=== PATIENT | female | born 1935 | race Caucasian/White ===

== ENCOUNTER 2019-07-20 01:41 | Emergency (ER) | payer MEDICARE, BC, SELFPAY ==
[2019-07-20 01:47] VITALS: BP 188/76; PULSE 85; RESP 18; TEMP 36.8; O2SAT 100
[2019-07-20 02:22] LABS: Add Urine Microscopic? YES; Appearance Urine Clear (Clear); Bilirubin Urine Negative (Negative); Blood Urine 1+ (Negative); Color Urine Yellow (Yellow); Glucose Urine UA Negative (Negative); Ketones Urine Negative (Negative); Leukocyte Esterase Ur 2+ LEU/UL (Negative); Nitrate Urine Negative (Negative); Protein Urine Negative (Negative); Specific Grav Ur <= 1.005 (1.010-1.020); Urobilinogen Urine 0.2 mg/dL (0.2-1.0); pH Urine 5.5 (5.0-8.0)
[2019-07-20 02:31] LABS: Bacteria Urine Trace /hpf; Squamous Epithelial Cell Urine None seen /hpf (Few); WBC Urine 21-30 /hpf (0-3)
[2019-07-20 02:36] VITALS: BP 170/76; PULSE 60; RESP 16; O2SAT 100
--- NOTE | 2019-07-20 02:39 | ED.FEMALEGU ---
HPI - Female Genitourinary General Chief complaint: Urogenital-Female Stated complaint: Possible dehydration Time Seen by Provider: 07/20/19 02:40 Source: patient and RN notes reviewed Mode of arrival: ambulatory Limitations: no limitations History of Present Illness MD elicited complaint: UTI Onset (ago): day(s) (1) Severity: moderate Female Urogenital Radiation: Non-Radiating Consistency: intermittent Urinary symptoms: Urgency and Frequency Exacerbating factors: urination Relieving factors: none Associated symptoms: denies other symptoms Treatment prior to arrival: none Sexual activity: No Related Data Home Medications Medication Instructions Recorded Confirmed pravastatin 40 mg PO DAILY 07/20/19 07/20/19 Allergies Allergy/AdvReac Type Severity Reaction Status Date / Time atropine Allergy Unknown EYE Verified 10/01/16 09:37 REDNESS, IRRITATION Review of Systems Review of Systems: All systems reviewed & are unremarkable except as noted in HPI and below Constitutional: Constitutional: Denies chills Cardiovascular: Cardiovascular: Reports no additional cardiovascular complaints Respiratory: Respiratory: Reports no additional respiratory complaints Gastrointestinal: Gastrointestinal: Reports no additional gastrointestinal complaints, Denies diarrhea, Denies nausea and Denies vomiting Genitourinary: Genitourinary: Reports no additional female genitourinary complaints, Denies hematuria and Denies dysuria Musculoskeletal: Musculoskeletal: Reports no additional musculoskeletal complaints Integumentary/Breasts: Skin/Breast: Reports system reviewed and no additional complaints, except as docu Neurologic: Reports system reviewed and no additional complaints, except as documented Psychiatric: Psychiatric: Reports no additional psychiatric complaints Endocrine: Endocrine: Reports no additional endocrine complaints [facility] Past Medical History Medical History (Updated 07/20/19 @ 02:59 by Eagle Vargas MD) Hyperlipidemia Ovary cancer Surgical History Surgical History (Updated 07/20/19 @ 02:59 by Eagle Vargas MD) History of hip surgery History of hysterectomy Social History Social History Smoking status: Never smoker Alcohol intake: current Exam Const: General: healthy appearing and no acute distress Nutritional Appearance: well nourished Orientation/consciousness: patient oriented x3 HENMT: Head: normal to inspection Ears: external ears normal General nose exam: Normal external nose present Face and sinus: normal facial exam Mouth: Yes lip normal Eyes: Conjunctivae: conjunctivae normal Pupils: Equal, round and reactive pupils present EOM: EOMs intact bilaterally Neck: Neck: normal visual inspection Resp: Effort & Inspection: normal respiratory effort Auscultation: clear to auscultation bilaterally Cardio: Rate: regular rate Rhythm: regular rhythm GI: GI Palp: Yes Soft to palpation and No Tenderness to palpation present (GI) Auscultation: normal bowel sounds : General: Yes no CVA tenderness Back/Spine/Pelvis: Cervical Spine: cervical ROM normal Thoracic/Lumbar Spine: thoraco-lumbar ROM normal Skin: General skin exam: normal color Rashes: no rashes Neuro: General: patient oriented x3, moves all extremities and no focal motor deficits Speech: normal speech Gait exam (Neuro): Normal gait present Extrem: General: normal to inspection and no pedal edema Psych: Appearance: well kempt Mental Status: mental status grossly normal Affect: normal affect Attitude: cooperative Thought content: Yes Normal thought content present Judgement: Good judgement present (Psych) Course Vital Signs Vital signs: Vital Signs Temperature 36.8 C 07/20/19 01:47 Pulse Rate 85 07/20/19 01:47 Respiratory Rate 18 07/20/19 01:47 Blood Pressure 188/76 H 07/20/19 01:47 Pulse Oximetry 100 07/20/19 01:47
[2019-07-20] MEDS: NITROFURANTOIN MONOHYD MACROCR 100 MG CAP PO (02:59)
[2019-07-20 03:07] VITALS: BP 172/80; PULSE 70; RESP 16; O2SAT 100
== END 2019-07-20 03:00 | disposition home or self-care (01) ==
PROVIDERS: Emergency Provider Emergency Medicine; PCP Internal Medicine
DX: N30.00 Acute cystitis without hematuria (principal); E78.5 Hyperlipidemia, unspecified
CPT/HCPCS: 81001; 87077; 87086; 87088; 87186; 99283; A9270

== ENCOUNTER 2019-07-29 08:21 | Outpatient (CLI) | payer MEDICARE, SELFPAY ==
[2019-07-29 08:51] LABS: Add Urine Microscopic? YES; Appearance Urine Clear (Clear); Bilirubin Urine Negative (Negative); Blood Urine Negative (Negative); Color Urine Yellow (Yellow); Glucose Urine UA Negative (Negative); Ketones Urine Negative (Negative); Leukocyte Esterase Ur 1+ (Negative); Nitrate Urine Negative (Negative); Protein Urine Negative (Negative); Specific Grav Ur 1.025 (1.010-1.020); Urobilinogen Urine 0.2 mg/dL (0.2-1.0); pH Urine 5.5 (5.0-8.0)
[2019-07-29 08:58] LABS: Bacteria Urine 3+ /hpf; Mucus Urine Moderate /lpf; RBC Urine 0-2 /hpf (0-2); Squamous Epithelial Cell Urine Few /hpf (Few); WBC Urine 16-20 /hpf (0-3)
[2019-07-29 09:06] LABS: Hemoglobin A1C 5.7 % (<5.7)
[2019-07-29 09:21] LABS: Alanine Aminotransferase 24 U/L (14-59); Albumin Level 4.3 g/dL (3.4-5.0); Alkaline Phosphatase 54 U/L (46-116); Anion Gap 12.1 mmol/L (7-16); Aspartate Amino Transferase 30 U/L (15-37); Bilirubin,Total 0.6 mg/dL (0.00-1.00); Blood Urea Nitrogen 25 mg/dL (7-18); Calcium 10.3 mg/dL (8.5-10.1); Carbon Dioxide 30 mmol/L (21-32); Chloride 102 mmol/L (98-108); Cholesterol 197 mg/dL (0-200); Creatine Kinase 60 U/L (26-192); Estimated Glomerular Filt Rate 48; Glucose 91 mg/dL (70-99); HDL Direct 78 mg/dL (40-60); LDL Cholesterol Calculated 104 mg/dL (<130); Osmolality Calculated 294 mOsm/kg (285-295); Potassium 4.1 mmol/L (3.5-5.1); Sodium 140 mmol/L (136-145); Triglycerides 76 mg/dL (0-150); Uric Acid 6.8 mg/dL (2.6-6.0)
[2019-08-02 19:08] LABS: Vitamin D 25 Hydroxy 35 ng/mL (30-100)
== END 2019-07-29 08:22 | disposition home or self-care (01) ==
PROVIDERS: PCP Internal Medicine; Visit Provider Internal Medicine
DX: E79.0 Hyperuricemia without signs of inflammatory arthritis and tophaceous disease (principal); I10 Essential (primary) hypertension; E78.2 Mixed hyperlipidemia; R73.01 Impaired fasting glucose; M81.0 Age-related osteoporosis without current pathological fracture; N39.0 Urinary tract infection, site not specified
CPT/HCPCS: 36415; 80053; 80061; 81001; 82306; 82550; 83036; 84550; 87086

== ENCOUNTER 2019-08-09 13:41 | Outpatient (CLI) | payer MEDICARE, BC, SELFPAY ==
--- NOTE | ~2019-08-09 | MM_ITS ---
EXAMINATION: MM screening diya BI w phoe[facility] HISTORY: Screening mammogram TECHNIQUE: Craniocaudal and mediolateral oblique 3-D tomosynthesis images were obtained and synthetic 2-D images were generated. CAD analysis was submitted and interpreted. COMPARISON: 06/02/2018, 05/21/2017, 10/12/2015 bilateral digital screening mammogram examinations BREAST PARENCHYMAL COMPOSITION: There are scattered areas of fibroglandular density. FINDINGS: Multiple bilateral benign calcifications. There is suggestion of a several millimeter mass in the mid outer left breast anteriorly (craniocauda l Tomosynthesis image 22/49). Diagnostic left mammogram and left breast ultrasound examination are re commended. Otherwise there is no evidence of suspicious mass, calcification, or architectural distortion to sugg est malignancy in either breast. There has been no other suspicious interval change. IMPRESSION: 1. Possible 7 mm mass of mid outer left breast 2. Diagnostic left mammogram and left breast ultrasound examination are recommended. BI-RADS Category 0: Incomplete: Needs additional imaging evaluation. Reviewed, dictated and finalized at location A. IMPRESSION: 1. Possible 7 mm mass of mid outer left breast 2. Diagnostic left mammogram and left breast ultrasound examination are recomme nded. BI-RADS Category 0: Incomplete: Needs additional imaging evaluation.
== END 2019-08-09 13:42 | disposition home or self-care (01) ==
PROVIDERS: PCP Internal Medicine; Visit Provider Internal Medicine
DX: Z12.31 Encounter for screening mammogram for malignant neoplasm of breast (principal)
CPT/HCPCS: 77063; 77067

== ENCOUNTER 2019-08-12 10:15 | Outpatient (CLI) | payer MEDICARE, BC, SELFPAY ==
--- NOTE | ~2019-08-12 | MMUS_ITS ---
EXAMINATION: MM diagnostic diya LT w phoebe, US breast LT limited HISTORY: Possible 7 mm mass with mid outer left breast on 08/09/2019 screening mammogram TECHNIQUE: Additional 3-D tomosynthesis images of were performed and synthetic 2-D images were genera elisabeth. CAD analysis was submitted and interpreted. High resolution breast ultrasound was performed. COMPARISON: 08/09/2019 bilateral digital screening mammogram FINDINGS: MAMMOGRAPHIC FINDINGS: Possible 5.5 mm mass is suggested in the outer left breast on craniocaudal projections. This is likel y in the upper outer quadrant. Additional smaller upper outer quadrant masses are not excluded. Ultra sound of the upper outer and lower-outer quadrants of the left breast is recommended. ULTRASOUND: At 2:00 3 cm from the nipple there is a parallel hypoechoic 1.4 x 2.7 mm x 3.6 mm lesion with posteri or shadowing. Ultrasound-guided biopsy should be considered. 3:00 3 cm from nipple: 2.4 mm cyst 3:00 5 cm from nipple: Septated up to 5.6 mm cyst 3:00 1 cm from nipple: Parallel circumscribed hypoechoic solid lesion measuring 3.9 x 5.9 x 7.2 mm ma ss without internal vascularity or posterior shadowing; this may be a papilloma or other solid mass. Consider ultrasound-guided biopsy. 4:00 1 cm from nipple: Multi septated 3.0 x 4.5 mm cyst 4:00 1 cm from nipple: 1.6 x 2.5 mm cyst IMPRESSION: 1. 1.4 x 2.7 x 3.6 mm mass with posterior shadowing at 2:00 3 cm from nipple; consider ultrasound-dayday ded biopsy 2. 3.9 x 5.9 x 7.2 mm mass at 3:00 1 cm from nipple; consider ultrasound-guided biopsy BI-RADS category 4, suspicious findings. Dr. Osman telephoned the reports and ultrasound biopsy recommendations to Dr. Perez's nurse Viki on 1145 hours Reviewed, dictated and finalized at location A. IMPRESSION: 1. 1.4 x 2.7 x 3.6 mm mass with posterior shadowing at 2:00 3 cm from nipple; c onsider ultrasound-guided biopsy 2. 3.9 x 5.9 x 7.2 mm mass at 3:00 1 cm from nipple; consider ultrasound-guided biopsy BI-RADS category 4, suspicious findings. Dr. Osman telephoned the reports and ultrasound biopsy recommendations to Dr. Tra raman's nurse Viki on 08/12/2019 1145 hours
== END 2019-08-12 10:16 | disposition home or self-care (01) ==
PROVIDERS: PCP Internal Medicine; Visit Provider Internal Medicine
DX: R92.8 Other abnormal and inconclusive findings on diagnostic imaging of breast (principal)
CPT/HCPCS: 76642; 77061; 77065; G0279

== ENCOUNTER 2019-08-24 12:40 | Outpatient (CLI) | payer MEDICARE, BC, SELFPAY ==
--- NOTE | ~2019-08-24 | MMUS_ITS ---
EXAMINATION: US breast biopsy LT w image, MM post biopsy invasive LT DATE: 08/24/2019 14:00 INDICATION: Indeterminate left breast masses on recent diagnostic evaluation Ultrasound-guided core biopsy is requested to evaluate for malignancy. TECHNIQUE AND FINDINGS: Two breast masses were recommended for biopsy on recent diagnostic workup. On real-time scanning, the mass described at the 2:00 location 3 cm from the nipple contains punctate internal calcifications a nd corresponds to a stable calcified fibroadenoma on the mammogram. The risks and potential benefits of the procedure were discussed with the patient including bleeding and infection. A time out was per formed. The skin of the left breast was prepared and draped in usual sterile fashion. 1% lidocaine wa s used for superficial anesthesia. 1% lidocaine with epinephrine was used for deep anesthesia. A vacuum-assisted biopsy gun needle was advanced through to the outer edge of the lesion at the 3:00 location 1 cm from the nipple from an inferolateral approach utilizing sonographic guidance. A total of two tissue core samples were obtained through the lesion. The lesion was not well demonstrated aft er the third sampling. A tissue marker clip was then placed at the biopsy site. Hemostasis was achiev ed. A sterile bandage was applied. The patient tolerated procedure well and there was no evidence of immediate complication. The patient was given verbal instructions to return to the Emergency Department in the event of severe breast pa in or rapid breast enlargement. A two view left breast mammogram was obtained to document tissue janna er clip placement. IMPRESSION: 1. Successful ultrasound-guided vacuum-assisted biopsy of left breast mass with tissue marker placeme nt. Reviewed, dictated and finalized at location A. IMPRESSION: 1. Successful ultrasound-guided vacuum-assisted biopsy of left breast mass with tissue marker placement.
== END 2019-08-24 12:41 | disposition home or self-care (01) ==
LOC: CHSIMG 12:43
PROVIDERS: PCP Internal Medicine; Visit Provider Internal Medicine
DX: D24.2 Benign neoplasm of left breast (principal)
CPT/HCPCS: 19083; 88305; A4648

== ENCOUNTER 2020-01-23 08:22 | Outpatient (CLI) | payer MEDICARE, SELFPAY ==
[2020-01-23 08:35] LABS: Basophils Absolute Auto 0.04 K/mm3 (0.00-0.10); Basophils Percent Auto 0.9 % (0.0-1.0); Eosinophils Absolute Auto 0.03 K/mm3 (0.02-0.50); Eosinophils Percent Auto 0.6 % (1.0-6.0); Hematocrit 39.8 % (35.0-42.0); Hemoglobin 13.2 g/dL (11.7-13.8); Immature Granulocyte Absolute 0.01 K/mm3 (0.00-0.00); Immature Granulocyte Percent A 0.2 % (0.0-0.0); Lymphocytes Absolute Auto 1.83 K/mm3 (1.10-4.50); Lymphocytes Percent Auto 39.4 % (18.0-42.0); Mean Corpuscular HGB Conc 33.2 g/dL (32.0-36.0); Mean Corpuscular Hemoglobin 31.2 pg (27.0-31.0); Mean Corpuscular Volume 94.1 fL (78.0-102.0); Mean Platelet Volume 10.5 fl (9.2-11.8); Monocytes Absolute Auto 0.24 K/mm3 (0.10-0.90); Monocytes Percent Auto 5.2 % (2.0-11.0); Neutrophils Absolute Auto 2.5 K/mm3 (1.7-7.2); Neutrophils Percent Auto 53.7 % (50.0-70.0); Platelet Count Result 229 K/mm3 (150-420); Red Blood Count 4.23 M/mm3 (4.20-5.40); Red Cell Distribution Width 13.1 % (11.6-14.4); White Blood Count 4.6 K/mm3 (4.8-10.8)
[2020-01-23 08:45] LABS: Hemoglobin A1C 5.2 % (<5.7)
[2020-01-23 08:48] LABS: Add Urine Microscopic? YES; Appearance Urine Clear (Clear); Bilirubin Urine Negative (Negative); Blood Urine Negative (Negative); Color Urine Yellow (Yellow); Glucose Urine UA Negative (Negative); Ketones Urine Negative (Negative); Leukocyte Esterase Ur 2+ LEU/UL (Negative); Nitrate Urine Negative (Negative); Protein Urine Negative (Negative); Specific Grav Ur 1.025 (1.010-1.020); Urobilinogen Urine 0.2 mg/dL (0.2-1.0); pH Urine 5.5 (5.0-8.0)
[2020-01-23 08:54] LABS: RBC Urine None seen /hpf (0-2)
[2020-01-23 08:55] LABS: Bacteria Urine 1+ /hpf; Squamous Epithelial Cell Urine Few /hpf (Few)
[2020-01-23 09:09] LABS: Alanine Aminotransferase 24 U/L (14-59); Albumin Level 4.2 g/dL (3.4-5.0); Alkaline Phosphatase 55 U/L (46-116); Anion Gap 9 mmol/L (8-16); Aspartate Amino Transferase 23 U/L (15-37); Bilirubin,Total 0.5 mg/dL (0.00-1.00); Blood Urea Nitrogen 21 mg/dL (7-18); Calcium 10.2 mg/dL (8.5-10.1); Carbon Dioxide 28 mmol/L (21-32); Chloride 107 mmol/L (98-108); Cholesterol 233 mg/dL (0-200); Estimated Glomerular Filt Rate 54; Glucose 97 mg/dL (70-99); HDL Direct 74 mg/dL (40-60); LDL Cholesterol Calculated 133 mg/dL (<130); Osmolality Calculated 301 mOsm/kg (285-295); Potassium 4.1 mmol/L (3.5-5.1); Sodium 144 mmol/L (136-145); Triglycerides 131 mg/dL (0-150); Uric Acid 6.2 mg/dL (2.6-6.0)
[2020-01-25 11:17] LABS: Vitamin D 25 Hydroxy 19 ng/mL (30-100)
== END 2020-01-23 08:23 | disposition home or self-care (01) ==
LOC: CHSLAB 08:24
PROVIDERS: PCP Internal Medicine; Visit Provider Internal Medicine
DX: E79.0 Hyperuricemia without signs of inflammatory arthritis and tophaceous disease (principal); I10 Essential (primary) hypertension; E78.2 Mixed hyperlipidemia; M81.0 Age-related osteoporosis without current pathological fracture; R73.01 Impaired fasting glucose; R82.90 Unspecified abnormal findings in urine
CPT/HCPCS: 36415; 80053; 80061; 81001; 82306; 83036; 84550; 85025; 87086

== ENCOUNTER 2020-02-01 10:26 | Outpatient (CLI) | payer MEDICARE, BC, SELFPAY ==
--- NOTE | 2020-02-01 10:45 | ECG_ITS ---
Measurements Intervals [place] Rate: 65 P: 81 NH: 162 QRS: 60 QRSD: 79 T: 74 QT: 378 QTc: 393 Interpretive Statements SINUS RHYTHM RSR' IN V1 OR V2, CONSIDER RIGHT VENTRICULAR HYPERTROPHY OR RIGHT VCD BORDERLINE T WAVE ABNORMALITY- ANTERIOR LEADS BASELINE WANDER- I, II, V1-V2 BORDERLINE ECG Electronically Signed On 02-01-2020 11:48:49 CENTRAL OFFICE REPAIRER by Sonido Jimenez D.O.
== END 2020-02-01 10:27 | disposition home or self-care (01) ==
LOC: CHSCARD 10:36
PROVIDERS: PCP Internal Medicine; Visit Provider Anesthesiology
DX: E78.00 Pure hypercholesterolemia, unspecified (principal); I10 Essential (primary) hypertension
CPT/HCPCS: 93005

== ENCOUNTER 2020-02-04 08:30 | Outpatient (CLI) | payer MEDICARE, BC, SELFPAY ==
[2020-02-06 16:54] LABS: SARS-CoV-2 RNA PCR Negative
== END 2020-02-04 08:31 | disposition home or self-care (01) ==
LOC: ANHCOVIDDT 08:31
PROVIDERS: PCP Internal Medicine; Visit Provider Plastic Surgery
DX: Z01.812 Encounter for preprocedural laboratory examination (principal); Z20.828 Contact with and (suspected) exposure to other viral communicable diseases
CPT/HCPCS: 87635; C9803; U0003

== ENCOUNTER 2020-02-08 00:52 | Day surgery (SDC) | payer MEDICARE, BC, SELFPAY ==
[2020-01-31 13:13] VITALS: BMI 22.0
--- NOTE | 2020-02-07 14:51 | P.PNAN_ITS ---
Anes - Initial Pre Proc Eval Procedure: Operation Date: 02/08/20 09:30 Proposed Procedures p Excision Of Basal Cell Carcinoma,Left [place], With Frozen Section And Possible Full Thickness Skin Graft - Moiz Ny MD Date/Time: 02/07/20 14:51 Surgeon: Moiz Ny MD Pre Op Diagnosis: Basal Cell Carcinoma Left Hindu Patient Data Age: 84 Gender: F Height: 1.54 m Weight: 52 kg Allergies Allergy/AdvReac Type Severity Reaction Status Date / Time atropine AdvReac Mild EYE Verified 02/08/20 07:27 REDNESS, IRRITATION Home Medications Medication Instructions Recorded Confirmed Type pravastatin 40 mg PO HS 07/20/19 02/08/20 History naproxen sodium [Aleve] 440 mg PO QAM PRN 01/31/20 02/08/20 History triamterene-hydrochlorothiazid 1 tablet PO QAM 01/31/20 02/08/20 History Patient hx anesthesia problems: none Family hx anesthesia problems: none [facility] Past Medical History Medical History (Updated 02/07/20 @ 14:51 by Reji Choudhury DO) GERD (gastroesophageal reflux disease) History of heart attack stress [place] - no treatment Hyperlipidemia Hypertension Ovary cancer Surgical History Surgical History (Updated 07/20/19 @ 02:59 by Eagle Vargas MD) History of hip surgery History of hysterectomy Social History Social History Smoking status: Former smoker Alcohol intake: current Drinks per week: 6 Substance use: never Living arrangements: with family Additional living arrangements comments: DAUGHTER AND HER HUSB Spiritual care concerns: No Anes - Eval Final PreProcedure Day of Procedure 02/07/20 14:51 Patient weight: normal Heart: regular rate and rhythm Lungs: clear to auscultation and normal air movement Airway: Mallampati scale class II Neurological: alert and oriented Last oral intake: >/= 8 hours ASA classification: III Emergent: no Anesthetic plan: proceed Anesthesia type and monitoring: general GIVS and standard monitoring Informed Consent: The patient's anesthetic plan and its attendant risks and benefits were discussed with the patient/family/POA. Questions were solicited and answers provided to the satisfaction of the patient/family/POA.
--- NOTE | 2020-02-08 07:10 | WPDHPUPDATE1 ---
History and Physical Update Update Date/Time: 02/08/20 07:10 History and Physical has been reviewed, including an updated exam of the patient. There are NO changes in the patient's condition. Risks, benefits, and alternatives have been discussed and questions answered. Patient agrees to proceed with procedure.
[2020-02-08 07:41] VITALS: BP 148/47; PULSE 65; RESP 20; TEMP 36.9; O2SAT 100
[2020-02-08] MEDS: LACTATED RINGERS 1,000 ML 30 ML IV CONT (07:56)
[2020-02-08] MEDS: LIDO 1%/EPINEPHRINE 1:100,000 20 ML VIAL 3 ML INFILTRATE (11:03)
[2020-02-08] MEDS: BACITRACIN OINTMENT 15 GM TUBE 1 APPLIC TOPICAL (11:04)
[2020-02-08 11:14] VITALS: BP 143/69; PULSE 92; RESP 16; TEMP 36.3; O2SAT 92
--- NOTE | 2020-02-08 11:25 | P.OPB_ITS ---
Procedure Note - Brief Procedure Note - Brief Date of procedure: 02/08/20 Pre-op diagnosis: Basal Cell Carcinoma Left [place] Post-op diagnosis: same Procedure performed: 3 cm excision of BCC or left latter day with FS and intermediate repair 5 cm. Anesthesia: MAC Surgeon: Moiz Ny MD Estimated blood loss (mL): 2 Drains: No Packing: No Pathology: yes Complications: No immediate complications Condition: stable Disposition: same day
--- NOTE | 2020-02-08 11:30 | P.OP_ITS ---
Procedure Note - Detailed Date of procedure: 02/08/20 Pre-op diagnosis: Basal Cell Carcinoma Left Rastaf[place] Post-op diagnosis: same Procedure performed: 4 cm excision of basal cell carcinoma left congregational with frozen section and intermediate repair 5 cm Description of procedure: Site on the forehead was marked while the patient was in the holding area. She was taken to the operating room where she was placed supine on the operating table. A time-out was held and confirmed. She was given IV sedation and her face was prepped and draped in usual fashion. The site was carefully examined for her forehead and a nickel sized silvery scar like structure was noted elevated about 0.5 mm. The site was widely circumscribed with pen marking and infiltrated with 1% lidocaine with epinephrine. The ellipse including subcutaneous tissue was excised the site most near the orbit was marked as 12:00 o'clock and the tissue was sent for frozen section. The pathologist reported that the 12-1 o'clock margin was positive. A 2nd specimen was sent from the 11-2 aspect. The pathologist reported this also had a positive margin in the 12-1 region. He suggested permanent sections to follow. The additional tissue was taken off again from the 11 to to margin it was marked at its new 12:00 p.m. point and sent for permanent. The wound was easily closed on this elderly patient with intradermal 4-0 Vicryl and a running 5 0 nylon. We closed the skin over the eyelid with 5 0 chromic. She tolerated this procedure well. She prefers Aleve for pain medicine. She is being discharged with instructions in wound care and follow- up. Surgeon: Moiz Ny MD
[2020-02-08 11:45] VITALS: BP 138/54; PULSE 52; RESP 14
[2020-02-08 12:00] VITALS: BP 138/54; PULSE 52; RESP 16
== END 2020-02-08 12:10 | disposition home or self-care (01) ==
PROVIDERS: PCP Internal Medicine; Visit Provider Plastic Surgery
PROC: (CPT 11644; principal; 2020-02-08 09:30)
DX: C44.319 Basal cell carcinoma of skin of other parts of face (principal); K21.9 Gastro-esophageal reflux disease without esophagitis; I25.2 Old myocardial infarction; E78.5 Hyperlipidemia, unspecified; I10 Essential (primary) hypertension; Z85.43 Personal history of malignant neoplasm of ovary; Z87.891 Personal history of nicotine dependence
CPT/HCPCS: 11644; 12052; 88305; 88331; A9270; J2704; J7120

== ENCOUNTER 2020-07-20 07:47 | Outpatient (CLI) | payer MEDICARE, SELFPAY ==
[2020-07-20 08:09] LABS: Basophils Absolute Auto 0.03 K/mm3 (0.00-0.10); Basophils Percent Auto 0.6 % (0.0-1.0); Eosinophils Absolute Auto 0.02 K/mm3 (0.02-0.50); Eosinophils Percent Auto 0.4 % (1.0-6.0); Hemoglobin 13.3 g/dL (11.7-13.8); Immature Granulocyte Absolute 0.01 K/mm3 (0.00-0.00); Immature Granulocyte Percent A 0.2 % (0.0-0.0); Lymphocytes Absolute Auto 2.01 K/mm3 (1.10-4.50); Lymphocytes Percent Auto 39.3 % (18.0-42.0); Mean Corpuscular HGB Conc 33.3 g/dL (32.0-36.0); Mean Corpuscular Hemoglobin 31.4 pg (27.0-31.0); Mean Corpuscular Volume 94.3 fL (78.0-102.0); Mean Platelet Volume 10.6 fl (9.2-11.8); Monocytes Absolute Auto 0.34 K/mm3 (0.10-0.90); Monocytes Percent Auto 6.7 % (2.0-11.0); Neutrophils Absolute Auto 2.7 K/mm3 (1.7-7.2); Neutrophils Percent Auto 52.8 % (50.0-70.0); Platelet Count Result 240 K/mm3 (150-420); Red Blood Count 4.24 M/mm3 (4.20-5.40); Red Cell Distribution Width 13.9 % (11.6-14.4); White Blood Count 5.1 K/mm3 (4.8-10.8)
[2020-07-20 08:10] LABS: Add Urine Microscopic? YES; Appearance Urine Clear (Clear); Bilirubin Urine Negative (Negative); Blood Urine Negative (Negative); Color Urine Yellow (Yellow); Glucose Urine UA Negative (Negative); Ketones Urine Negative (Negative); Leukocyte Esterase Ur 2+ (Negative); Nitrate Urine Negative (Negative); Protein Urine Negative (Negative); Urobilinogen Urine 0.2 mg/dL (0.2-1.0)
[2020-07-20 08:14] LABS: RBC Urine None seen /hpf (0-2)
[2020-07-20 08:15] LABS: Bacteria Urine Trace /hpf; Squamous Epithelial Cell Urine Rare /hpf (Few)
[2020-07-20 08:25] LABS: Hemoglobin A1C 5.4 % (<5.7)
[2020-07-20 08:56] LABS: Alanine Aminotransferase 31 U/L (14-59); Albumin Level 4.2 g/dL (3.4-5.0); Alkaline Phosphatase 58 U/L (46-116); Anion Gap 11 mmol/L (8-16); Aspartate Amino Transferase 24 U/L (15-37); Bilirubin,Total 0.5 mg/dL (0.00-1.00); Blood Urea Nitrogen 25 mg/dL (7-18); Calcium 10.3 mg/dL (8.5-10.1); Carbon Dioxide 29 mmol/L (21-32); Chloride 104 mmol/L (98-108); Cholesterol 216 mg/dL (0-200); Creatine Kinase 83 U/L (26-192); Estimated Glomerular Filt Rate 53; Glucose 102 mg/dL (70-99); HDL Direct 85 mg/dL (40-60); LDL Cholesterol Calculated 113 mg/dL (<130); Osmolality Calculated 302 mOsm/kg (285-295); Potassium 4.1 mmol/L (3.5-5.1); Sodium 144 mmol/L (136-145); Total Protein 7.1 g/dL (6.4-8.2); Triglycerides 88 mg/dL (0-150); Uric Acid 6.2 mg/dL (2.6-6.0)
[2020-07-22 22:04] LABS: Vitamin D 25 Hydroxy 38 ng/mL (30-100)
== END 2020-07-20 07:48 | disposition home or self-care (01) ==
LOC: CHSLAB 07:49
PROVIDERS: PCP Internal Medicine; Visit Provider Internal Medicine
DX: E79.0 Hyperuricemia without signs of inflammatory arthritis and tophaceous disease (principal); I10 Essential (primary) hypertension; R73.01 Impaired fasting glucose; E78.2 Mixed hyperlipidemia; M81.0 Age-related osteoporosis without current pathological fracture; N30.00 Acute cystitis without hematuria
CPT/HCPCS: 36415; 80053; 80061; 81001; 82306; 82550; 83036; 84550; 85025; 87086

== ENCOUNTER 2020-08-14 10:46 | Outpatient (CLI) | payer MEDICARE, BC, SELFPAY | END 2020-08-14 10:47 | disposition home or self-care (01) | LOC: CHSIMG 10:49 | PROVIDERS: PCP Internal Medicine; Visit Provider Internal Medicine | DX: Z00.00 Encounter for general adult medical examination without abnormal findings (principal) | CPT/HCPCS: 99199 ==

== ENCOUNTER 2020-10-23 08:16 | Outpatient (CLI) | payer MEDICARE, BC, SELFPAY ==
--- NOTE | ~2020-10-23 | MM_ITS ---
EXAMINATION: MM screening diya BI w phoebe HISTORY: Screening mammogram TECHNIQUE: Craniocaudal and mediolateral oblique 3-D tomosynthesis images were obtained and synthetic 2-D images were generated. CAD analysis was submitted and interpreted. COMPARISON: 08/24/2019 left ultrasound guided breast biopsy 08/12/2019 diagnostic left mammogram and limited left breast ultrasound 08/09/2019 06/02/2018 bilateral digital screening mammogram examinations BREAST PARENCHYMAL COMPOSITION: There are scattered areas of fibroglandular density. FINDINGS: History of bilateral prior benign breast biopsies. There is a biopsy marker on the left. Scattered bilateral benign calcifications. There is no evidence of suspicious mass, calcification, or architectural distortion to suggest malignancy in either breast. There has been no suspicious interv al change. IMPRESSION: 1. No mammographic evidence of malignancy. 2. Recommend routine screening mammography in one year. BI-RADS Category 2: Benign finding(s). Reviewed, dictated and finalized at location A.
== END 2020-10-23 08:17 | disposition home or self-care (01) ==
LOC: CHSIMG 08:17
PROVIDERS: PCP Internal Medicine; Visit Provider Internal Medicine
DX: Z12.31 Encounter for screening mammogram for malignant neoplasm of breast (principal)
CPT/HCPCS: 77063; 77067

== ENCOUNTER 2021-01-17 07:41 | Outpatient (CLI) | payer MEDICARE, SELFPAY ==
[2021-01-17 07:57] LABS: Add Urine Microscopic? YES; Appearance Urine Clear (Clear); Bilirubin Urine Negative (Negative); Blood Urine Negative (Negative); Color Urine Light Yellow (Yellow); Glucose Urine UA Negative (Negative); Ketones Urine Negative (Negative); Leukocyte Esterase Ur 1+ (Negative); Nitrate Urine Negative (Negative); Protein Urine Negative (Negative); Urobilinogen Urine 0.2 mg/dL (0.2-1.0); pH Urine 6.5 (5.0-8.0)
[2021-01-17 08:03] LABS: Bacteria Urine Trace /hpf; RBC Urine None seen /hpf (0-2); Squamous Epithelial Cell Urine Rare /hpf (Few); WBC Urine 0-3 /hpf (0-3)
[2021-01-17 08:06] LABS: Hemoglobin A1C 5.3 % (<5.7)
[2021-01-17 08:46] LABS: Alanine Aminotransferase 35 U/L (14-59); Albumin Level 4.3 g/dL (3.4-5.0); Alkaline Phosphatase 58 U/L (46-116); Anion Gap 9 mmol/L (8-16); Aspartate Amino Transferase 30 U/L (15-37); Bilirubin,Total 0.5 mg/dL (0.00-1.00); Blood Urea Nitrogen 22 mg/dL (7-18); Calcium 10.3 mg/dL (8.5-10.1); Carbon Dioxide 30 mmol/L (21-32); Chloride 105 mmol/L (98-108); Cholesterol 230 mg/dL (0-200); Estimated Glomerular Filt Rate 53; Glucose 100 mg/dL (70-99); HDL Direct 85 mg/dL (40-60); LDL Cholesterol Calculated 123 mg/dL (<130); Osmolality Calculated 301 mOsm/kg (285-295); Potassium 4.2 mmol/L (3.5-5.1); Sodium 144 mmol/L (136-145); Total Protein 7.4 g/dL (6.4-8.2); Triglycerides 111 mg/dL (0-150)
== END 2021-01-17 07:42 | disposition home or self-care (01) ==
LOC: CHSLAB 07:43
PROVIDERS: PCP Internal Medicine; Visit Provider Internal Medicine
DX: R73.01 Impaired fasting glucose (principal); E78.2 Mixed hyperlipidemia; I10 Essential (primary) hypertension
CPT/HCPCS: 36415; 80053; 80061; 81001; 83036

== ENCOUNTER 2021-07-15 12:50 | Emergency (ER) | payer MEDICARE, BC, SELFPAY ==
--- NOTE | ~2021-07-15 | CT_ITS ---
EXAMINATION: CT abdomen pelvis wo con DATE: 07/15/2021 13:40 INDICATION: Right upper quadrant abdominal pain that started in the epigastric area at 2:00 AM this m orning TECHNIQUE: Computed tomography (CT) of the abdomen and pelvis was performed without intravenous contr ast. Automated exposure control and iterative reconstruction technique were employed. Exam dose: 221 .15 mGy-cm total exam DLP. COMPARISON: 08/26/2018 CT abdomen pelvis FINDINGS: Borderline heart size. No pericardial or pleural effusion. No consolidation at the lung bas es. There is minimal infiltrate, atelectasis or fibrotic change at the lung bases. There are small dependent gallstones in the body of the gallbladder and a large gallbladder fundic co ncentrically calcified up to 2.7 cm stone, possibly within a phrygian cap. No pericholecystic fluid o r fat stranding is evident. Consider gallbladder ultrasound and/or radionuclide hepatobiliary scan if there is concern for acute cholecystitis. No bile duct or pancreatic duct dilatation. No hepatic, splenic, pancreatic, and adrenal or renal space-occupying mass lesion is evident. No urin meredith tract calculus or hydroureteronephrosis. The urinary bladder is relatively evacuated. The bladder and pelvic structures are not optimally evaluated due to extensive streak artifact from left hip pro sthesis. Small sliding hiatal hernia. No bowel obstruction is evident. No intraperitoneal free air. Status post hysterectomy. There is extensive abdominal aortic calcification, prominent calcification at the origins of the kishore l arteries and bilateral iliac and femoral artery calcifications. No abdominal aortic aneurysm. No in traperitoneal or retroperitoneal or pelvic mass lesion or adenopathy or ascites is evident. There is levoscoliosis and multilevel degenerative disc disease of the lumbar and lumbosacral spine Left total hip replacement Osteoarthritis of right hip IMPRESSION: Cholelithiasis, with multiple small dependent stones in the body of the gallbladder and up to 2.7 cm concentric calcified calculus at the fundus, possibly within phrygian cap Small sliding hiatal hernia Status post hysterectomy Left total hip arthroplasty Right hip osteoarthritis Reviewed, dictated and finalized at Location A. Reviewed, dictated and finalized at location A. IMPRESSION: Cholelithiasis, with multiple small dependent stones in the body o f the gallbladder and up to 2.7 cm concentric calcified calculus at the fundus, possibly within phrygian cap Small sliding hiatal hernia Status post hysterectomy Left total hip arthroplasty Right hip osteoarthritis
[2021-07-15 13:03] VITALS: BP 203/66; PULSE 73; RESP 20; TEMP 36.5; O2SAT 100
--- NOTE | 2021-07-15 13:06 | ECG_ITS ---
Measurements Intervals [place] Rate: 60 P: 152 MN: 159 QRS: -26 QRSD: 80 T: 141 QT: 413 QTc: 414 Interpretive Statements SINUS RHYTHM WITH SINUS ARRHYTHMIA INCOMPLETE RIGHT BUNDLE BRANCH BLOCK LOW QRS VOLTAGE IN LIMB LEADS ST-T WAVE ABNORMALITY IN HIGH LATERAL LEADS- CONSIDER ISCHEMIA BASELINE ARTIFACT- I, II, III, AVR, AVL, AVF, V1-V2 ABNORMAL ECG Electronically Signed On 07-15-2021 14:14:33 CDT by Sonido Jimenez D.O.
--- NOTE | 2021-07-15 13:07 | ED.GENADULT ---
HPI - General Adult General Chief complaint: Abdominal Pain Stated complaint: R side abd pain History of Present Illness HPI narrative: Toya is an 86F with a PMH of GERD, CAD, HTN, HLD and ovarian cancer that presented to the ED with pain in her RUQ. She ate a taco salad last night and went to bed. However, when she woke up this morning she had some epigastric pain that quickly migrated to her RUQ. There was no reported heartburn, N/V, diarrhea or constipation. No dysuria, fevers, or chills. She had a previous [place] that presented with abdominal pain. Related Data Home Medications Medication Instructions Recorded Confirmed pravastatin 40 mg tablet 40 mg PO HS 07/20/19 07/15/21 triamterene 37.5 1 tablet PO QAM 01/31/20 07/15/21 mg-hydrochlorothiazide 25 mg tablet Allergies Allergy/AdvReac Type Severity Reaction Status Date / Time atropine AdvReac Mild EYE Verified 07/15/21 13:07 REDNESS, IRRITATION Review of Systems Constitutional: Constitutional: Denies chills, Denies fever(s) and Denies weakness Eyes: Eyes: Reports no additional eye complaints ENT: Reports system reviewed and no additional complaints, except as documented Cardiovascular: Cardiovascular: Reports no additional cardiovascular complaints Respiratory: Respiratory: Reports no additional respiratory complaints Gastrointestinal: Gastrointestinal: Reports as per HPI Genitourinary: Genitourinary: Reports no additional female genitourinary complaints Musculoskeletal: Musculoskeletal: Reports no additional musculoskeletal complaints Integumentary/Breasts: Skin/Breast: Reports system reviewed and no additional complaints, except as docu Neurologic: Reports system reviewed and no additional complaints, except as documented Psychiatric: Psychiatric: Reports no additional psychiatric complaints Endocrine: Endocrine: Reports no additional endocrine complaints Hematologic/Lymphatic: Hematologic/Lymphatic: Reports no additional hematologic/lymphatic complaints Allergic/Immunologic: Allergic/Immunologic: Reports no additional allergic/immunologic complaints [facility] Past Medical History Medical History (Updated 07/15/21 @ 14:16 by Jose L Cuellar DO) GERD (gastroesophageal reflux disease) History of heart attack stress [place] - no treatment Hyperlipidemia Hypertension Ovary cancer Surgical History Surgical History (Updated 07/20/19 @ 02:59 by Eagle Vargas MD) History of hip surgery History of hysterectomy Social History Social History Smoking status: Former smoker Alcohol intake: current Drinks per week: 6 Substance use: never Additional living arrangements comments: DAUGHTER AND HER HUSB Spiritual care concerns: No Course Course Emergency Course: Ordered labs and CT wo contrast (No contrast was given d/t contrast shortages) Labs were largely unremarkable. DATE: 07/15/2021 13:40 INDICATION: Right upper quadrant abdominal pain that started in the epigastric area at 2:00 AM this morning TECHNIQUE: Computed tomography (CT) of the abdomen and pelvis was performed without intravenous contrast. Automated exposure control and iterative reconstruction technique were employed. Exam dose:? 221.15 mGy-cm total exam DLP.? COMPARISON: 08/26/2018 CT abdomen pelvis FINDINGS: Borderline heart size. No pericardial or pleural effusion. No consolidation at the lung bases. There is minimal infiltrate, atelectasis or fibrotic change at the lung bases. There are small dependent gallstones in the body of the gallbladder and a large gallbladder fundic concentrically calcified up to 2.7 cm stone, possibly within a phrygian cap. No pericholecystic fluid or fat stranding is evident. Consider gallbladder ultrasound and/or radionuclide hepatobiliary scan if there is concern for acute cholecystitis. No bile duct or pancreatic duct dilatation. No hepatic, splenic, pancreatic, and adrenal or ancelmo
[2021-07-15 13:25] LABS: Add Urine Microscopic? YES; Appearance Urine Clear (Clear); Bilirubin Urine Negative (Negative); Blood Urine Negative (Negative); Color Urine Light Yellow (Yellow); Glucose Urine UA Negative (Negative); Ketones Urine Negative (Negative); Leukocyte Esterase Ur Trace (Negative); Nitrate Urine Negative (Negative); Protein Urine Negative (Negative); Specific Grav Ur <= 1.005 (1.010-1.020); Urobilinogen Urine 0.2 mg/dL (0.2-1.0)
[2021-07-15 13:28] LABS: Basophils Absolute Auto 0.03 K/mm3 (0.00-0.10); Basophils Percent Auto 0.5 % (0.0-1.0); Eosinophils Absolute Auto 0.01 K/mm3 (0.02-0.50); Eosinophils Percent Auto 0.2 % (1.0-6.0); Hematocrit 40.8 % (35.0-42.0); Hemoglobin 13.8 g/dL (11.7-13.8); Immature Granulocyte Absolute 0.02 K/mm3 (0.00-0.00); Immature Granulocyte Percent A 0.3 % (0.0-0.0); Lymphocytes Absolute Auto 1.97 K/mm3 (1.10-4.50); Lymphocytes Percent Auto 31.6 % (18.0-42.0); Mean Corpuscular HGB Conc 33.8 g/dL (32.0-36.0); Mean Corpuscular Hemoglobin 31.9 pg (27.0-31.0); Mean Corpuscular Volume 94.2 fL (78.0-102.0); Monocytes Absolute Auto 0.34 K/mm3 (0.10-0.90); Monocytes Percent Auto 5.4 % (2.0-11.0); Neutrophils Absolute Auto 3.9 K/mm3 (1.7-7.2); Platelet Count Result 228 K/mm3 (150-420); Red Blood Count 4.33 M/mm3 (4.20-5.40); White Blood Count 6.2 K/mm3 (4.8-10.8)
[2021-07-15 13:30] LABS: Bacteria Urine Trace /hpf; RBC Urine None seen /hpf (0-2); Squamous Epithelial Cell Urine Occasional /hpf (Few); WBC Urine 0-3 /hpf (0-3)
[2021-07-15 13:34] LABS: Prothrombin Time 10.2 Seconds (9.50-12.10)
[2021-07-15 13:40] LABS: Alanine Aminotransferase 17 U/L (14-59); Albumin Level 4.4 g/dL (3.4-5.0); Alkaline Phosphatase 64 U/L (46-116); Anion Gap 8 mmol/L (8-16); Aspartate Amino Transferase 28 U/L (15-37); Bilirubin,Total 0.5 mg/dL (0.00-1.00); Blood Urea Nitrogen 22 mg/dL (7-18); Calcium 10.4 mg/dL (8.5-10.1); Carbon Dioxide 29 mmol/L (21-32); Chloride 99 mmol/L (98-108); Estimated CRCL calculation 29 ml/min; Estimated Glomerular Filt Rate 54; Glucose 99 mg/dL (70-99); Lactic Acid Reflex 1.3 mmol/L (0.4-2.0); Lipase 182 U/L (73-393); Osmolality Calculated 285 mOsm/kg (285-295); Potassium 3.2 mmol/L (3.5-5.1); Sodium 136 mmol/L (136-145); Total Protein 7.5 g/dL (6.4-8.2); Troponin I 12.3 ng/L (0.00-60.4)
[2021-07-15 13:41] LABS: CRP < 0.5 mg/dL (0.0-0.9)
[2021-07-15 14:20] VITALS: BP 157/59; PULSE 56; RESP 20; TEMP 36.7; O2SAT 100
== END 2021-07-15 14:23 | disposition home or self-care (01) ==
PROVIDERS: Emergency Provider Family Medicine; PCP Internal Medicine
DX: K80.20 Calculus of gallbladder without cholecystitis without obstruction (principal); K21.9 Gastro-esophageal reflux disease without esophagitis; E78.5 Hyperlipidemia, unspecified; I10 Essential (primary) hypertension; Z87.891 Personal history of nicotine dependence
CPT/HCPCS: 36415; 74176; 80053; 81001; 83605; 83690; 83735; 84484; 85025; 85610; 86140; 93005; 99284

== ENCOUNTER 2021-07-22 07:35 | Outpatient (CLI) | payer MEDICARE, SELFPAY ==
[2021-07-22 07:47] LABS: Basophils Absolute Auto 0.04 K/mm3 (0.00-0.10); Basophils Percent Auto 0.9 % (0.0-1.0); Eosinophils Absolute Auto 0.04 K/mm3 (0.02-0.50); Eosinophils Percent Auto 0.9 % (1.0-6.0); Hemoglobin 14.9 g/dL (11.7-13.8); Immature Granulocyte Absolute 0.01 K/mm3 (0.00-0.00); Immature Granulocyte Percent A 0.2 % (0.0-0.0); Lymphocytes Absolute Auto 1.96 K/mm3 (1.10-4.50); Lymphocytes Percent Auto 42.2 % (18.0-42.0); Mean Corpuscular HGB Conc 33.9 g/dL (32.0-36.0); Mean Corpuscular Hemoglobin 31.8 pg (27.0-31.0); Mean Platelet Volume 11.2 fl (9.2-11.8); Monocytes Absolute Auto 0.28 K/mm3 (0.10-0.90); Neutrophils Absolute Auto 2.3 K/mm3 (1.7-7.2); Neutrophils Percent Auto 49.8 % (50.0-70.0); Platelet Count Result 231 K/mm3 (150-420); Red Blood Count 4.68 M/mm3 (4.20-5.40); Red Cell Distribution Width 13.1 % (11.6-14.4); White Blood Count 4.6 K/mm3 (4.8-10.8)
[2021-07-22 07:52] LABS: Add Urine Microscopic? YES; Appearance Urine Clear (Clear); Bilirubin Urine Negative (Negative); Blood Urine Negative (Negative); Color Urine Light Yellow (Yellow); Glucose Urine UA Negative (Negative); Ketones Urine Negative (Negative); Leukocyte Esterase Ur 3+ (Negative); Nitrate Urine Negative (Negative); Protein Urine Negative (Negative); Urobilinogen Urine 0.2 mg/dL (0.2-1.0)
[2021-07-22 07:57] LABS: Hemoglobin A1C 5.5 % (<5.7)
[2021-07-22 08:06] LABS: Bacteria Urine 3+ /hpf; RBC Urine 0-2 /hpf (0-2); Squamous Epithelial Cell Urine Few /hpf (Few)
[2021-07-22 08:21] LABS: Alanine Aminotransferase 30 U/L (14-59); Albumin Level 4.6 g/dL (3.4-5.0); Alkaline Phosphatase 70 U/L (46-116); Anion Gap 8 mmol/L (8-16); Aspartate Amino Transferase 30 U/L (15-37); Bilirubin,Total 0.5 mg/dL (0.00-1.00); Blood Urea Nitrogen 16 mg/dL (7-18); Calcium 10.7 mg/dL (8.5-10.1); Carbon Dioxide 29 mmol/L (21-32); Chloride 100 mmol/L (98-108); Cholesterol 210 mg/dL (0-200); Estimated Glomerular Filt Rate 44; Glucose 102 mg/dL (70-99); HDL Direct 73 mg/dL (40-60); LDL Cholesterol Calculated 108 mg/dL (<130); Osmolality Calculated 285 mOsm/kg (285-295); Potassium 3.7 mmol/L (3.5-5.1); Sodium 137 mmol/L (136-145); Triglycerides 145 mg/dL (0-150); Uric Acid 7.4 mg/dL (2.6-6.0)
[2021-07-25 13:31] LABS: Vitamin D 25 Hydroxy 40 ng/mL (30-100)
== END 2021-07-22 07:36 | disposition home or self-care (01) ==
LOC: CHSLAB 07:37
PROVIDERS: PCP Internal Medicine; Visit Provider Internal Medicine
DX: M81.0 Age-related osteoporosis without current pathological fracture (principal); I10 Essential (primary) hypertension; R73.01 Impaired fasting glucose; E79.0 Hyperuricemia without signs of inflammatory arthritis and tophaceous disease
CPT/HCPCS: 36415; 80053; 80061; 81001; 82306; 83036; 84550; 85025

== ENCOUNTER 2021-08-26 07:32 | Outpatient (CLI) | payer MEDICARE, SELFPAY ==
[2021-08-26 07:50] LABS: Appearance Urine Clear (Clear); Bilirubin Urine Negative (Negative); Color Urine Yellow (Yellow); Glucose Urine UA Negative (Negative); Ketones Urine Negative (Negative); Leukocyte Esterase Ur Trace (Negative); Nitrate Urine Negative (Negative); Protein Urine Negative (Negative); Specific Grav Ur >= 1.030 (1.010-1.020); Urobilinogen Urine 0.2 mg/dL (0.2-1.0); pH Urine 5.5 (5.0-8.0)
[2021-08-26 07:54] LABS: Add Urine Microscopic? YES; Bacteria Urine Trace /hpf; Blood Urine Trace-Intact (Negative); RBC Urine None seen /hpf (0-2); Squamous Epithelial Cell Urine Few /hpf (Few); WBC Urine 0-3 /hpf (0-3)
[2021-08-26 08:04] LABS: Alanine Aminotransferase 37 U/L (14-59); Albumin Level 4.3 g/dL (3.4-5.0); Alkaline Phosphatase 63 U/L (46-116); Anion Gap 7 mmol/L (8-16); Aspartate Amino Transferase 41 U/L (15-37); Bilirubin,Total 0.5 mg/dL (0.00-1.00); Blood Urea Nitrogen 20 mg/dL (7-18); Calcium 9.8 mg/dL (8.5-10.1); Carbon Dioxide 26 mmol/L (21-32); Chloride 109 mmol/L (98-108); Estimated Glomerular Filt Rate 51; Glucose 91 mg/dL (70-99); Osmolality Calculated 296 mOsm/kg (285-295); Potassium 4.2 mmol/L (3.5-5.1); Sodium 142 mmol/L (136-145); Total Protein 7.3 g/dL (6.4-8.2)
== END 2021-08-26 07:33 | disposition home or self-care (01) ==
LOC: CHSLAB 07:35
PROVIDERS: PCP Internal Medicine; Visit Provider Internal Medicine
DX: R73.01 Impaired fasting glucose (principal); I10 Essential (primary) hypertension; R82.81 Pyuria
CPT/HCPCS: 36415; 80053; 81001

== ENCOUNTER 2021-08-27 08:45 | Outpatient (CLI) | payer MEDICARE, SELFPAY | END 2021-08-27 08:46 | disposition home or self-care (01) | PROVIDERS: PCP Internal Medicine; Visit Provider Internal Medicine | DX: R73.01 Impaired fasting glucose (principal); I10 Essential (primary) hypertension; R82.81 Pyuria | CPT/HCPCS: 87086 ==

== ENCOUNTER 2021-10-30 09:47 | Outpatient (CLI) | payer MEDICARE, SELFPAY ==
--- NOTE | ~2021-10-30 | MM_ITS ---
EXAMINATION: MM screening diya BI w phoebe HISTORY: Screening mammogram TECHNIQUE: Craniocaudal and mediolateral oblique 3-D tomosynthesis images were obtained and synthetic 2-D images were generated. CAD analysis was submitted and interpreted. COMPARISON: 10/23/2020 bilateral screening mammogram BREAST PARENCHYMAL COMPOSITION: There are scattered areas of fibroglandular density. FINDINGS: Right breast: There is no evidence of suspicious mass, calcification, or architectural dist ortion to suggest malignancy in the right breast. Multiple benign calcifications are noted. There has been no suspicious interval change. Left breast: Focal mammographic asymmetries are noted in the outer left breast on craniocaudal view i n the lower left breast on MLO view. Diagnostic left mammogram is recommended, with ultrasound if req uired. IMPRESSION: 1. Left breast mammographic asymmetries 2. Diagnostic left mammogram is recommended, with ultrasound if required BI-RADS Category 0: Incomplete: Needs additional imaging evaluation. Reviewed, dictated and finalized at location A.
== END 2021-10-30 09:48 | disposition home or self-care (01) ==
LOC: CHSIMG 09:49
PROVIDERS: PCP Internal Medicine; Visit Provider Internal Medicine
DX: Z12.31 Encounter for screening mammogram for malignant neoplasm of breast (principal)
CPT/HCPCS: 77063; 77067

== ENCOUNTER 2021-11-01 09:54 | Outpatient (CLI) | payer MEDICARE, BC, SELFPAY ==
--- NOTE | ~2021-11-01 | MMUS_ITS ---
EXAMINATION: MM diagnostic diya LT w phoebe, US breast LT limited HISTORY: Focal mammographic asymmetry is reported in outer left breast on screening craniocaudal view of 10/30/2021 TECHNIQUE: Additional 3-D tomosynthesis images of the left breast were performed and synthetic 2-D im ages were generated. CAD analysis was submitted and interpreted. High resolution upper outer and lowe r-outer quadrant left breast ultrasound was performed. COMPARISON: 10/30/2021, 10/23/2020 bilateral screening mammogram examinations 08/12/2019 diagnostic left mammogram and limited left breast ultrasound FINDINGS: MAMMOGRAPHIC FINDINGS: Biopsy marker noted on the left; history of prior benign left breast biopsy. Scattered benign calcifications. 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 No suspicious mass or shadowing is noted otherwise. IMPRESSION: 1. Benign findings 2. Routine annual mammographic screening is recommended BI-RADS Category 2: Benign finding(s). Reviewed, dictated and finalized at location A. IMPRESSION: 1. Benign findings 2. Routine annual mammographic screening is recommended BI-RADS Category 2: Benign finding(s).
== END 2021-11-01 09:55 | disposition home or self-care (01) ==
LOC: CHSIMG 09:58
PROVIDERS: PCP Internal Medicine; Visit Provider Internal Medicine
DX: R92.8 Other abnormal and inconclusive findings on diagnostic imaging of breast (principal)
CPT/HCPCS: 76642; 77061; 77065; G0279

== ENCOUNTER 2022-01-16 07:30 | Outpatient (CLI) | payer MEDICARE, SELFPAY ==
[2022-01-16 08:00] LABS: Appearance Urine Clear (Clear); Bilirubin Urine Negative (Negative); Blood Urine Negative (Negative); Glucose Urine UA Negative (Negative); Ketones Urine Negative (Negative); Leukocyte Esterase Ur Trace LEU/UL (Negative); Nitrate Urine Negative (Negative); Protein Urine Negative (Negative); Specific Grav Ur 1.025 (1.010-1.020); Urobilinogen Urine 0.2 mg/dL (0.2-1.0); pH Urine 5.5 (5.0-8.0)
[2022-01-16 08:03] LABS: Basophils Absolute Auto 0.03 K/mm3 (0.00-0.10); Basophils Percent Auto 0.7 % (0.0-1.0); Eosinophils Absolute Auto 0.02 K/mm3 (0.02-0.50); Eosinophils Percent Auto 0.5 % (1.0-6.0); Hematocrit 39.7 % (35.0-42.0); Immature Granulocyte Absolute 0.01 K/mm3 (0.00-0.00); Immature Granulocyte Percent A 0.2 % (0.0-0.0); Immature Platelet Fraction Pct 10.8 % (1.0-7.0); Lymphocytes Absolute Auto 1.78 K/mm3 (1.10-4.50); Lymphocytes Percent Auto 40.4 % (18.0-42.0); Mean Corpuscular HGB Conc 32.7 g/dL (32.0-36.0); Mean Corpuscular Hemoglobin 31.1 pg (27.0-31.0); Mean Platelet Volume 11.7 fl (9.2-11.8); Monocytes Absolute Auto 0.25 K/mm3 (0.10-0.90); Monocytes Percent Auto 5.7 % (2.0-11.0); Neutrophils Absolute Auto 2.3 K/mm3 (1.7-7.2); Neutrophils Percent Auto 52.5 % (50.0-70.0); Platelet Count Result 165 K/mm3 (150-420); Red Blood Count 4.18 M/mm3 (4.20-5.40); Red Cell Distribution Width 12.6 % (11.6-14.4); White Blood Count 4.4 K/mm3 (4.8-10.8)
[2022-01-16 08:10] LABS: Add Urine Microscopic? YES; Bacteria Urine Trace /hpf; Color Urine Light Yellow (Yellow); RBC Urine None seen /hpf (0-2); Squamous Epithelial Cell Urine Rare /hpf (Few)
[2022-01-16 08:11] LABS: Hemoglobin A1C 5.3 % (<5.7)
[2022-01-16 09:36] LABS: Alanine Aminotransferase 26 U/L (14-59); Albumin Level 4.1 g/dL (3.4-5.0); Alkaline Phosphatase 53 U/L (46-116); Anion Gap 10 mmol/L (8-16); Aspartate Amino Transferase 24 U/L (15-37); Bilirubin,Total 0.4 mg/dL (0.00-1.00); Blood Urea Nitrogen 23 mg/dL (7-18); Calcium 9.9 mg/dL (8.5-10.1); Carbon Dioxide 28 mmol/L (21-32); Chloride 107 mmol/L (98-108); Cholesterol 219 mg/dL (0-200); Estimated Glomerular Filt Rate > 60; Free T4 Free Thyroxine 0.88 ng/dL (0.76-1.46); Glucose 96 mg/dL (70-99); HDL Direct 75 mg/dL (40-60); LDL Cholesterol Calculated 124 mg/dL (<130); NT Pro B Type Natriuretic Pept 721 pg/mL (0-450); Osmolality Calculated 303 mOsm/kg (285-295); Potassium 4.1 mmol/L (3.5-5.1); Sodium 145 mmol/L (136-145); Thyroid Stimulating Hormone 5.66 uIU/mL (0.36-3.74); Total Protein 6.9 g/dL (6.4-8.2); Triglycerides 102 mg/dL (0-150)
[2022-01-21 20:01] LABS: Vitamin D 25 Hydroxy 49 ng/mL (30-100)
== END 2022-01-16 07:31 | disposition home or self-care (01) ==
LOC: CHSLAB 07:32
PROVIDERS: PCP Internal Medicine; Visit Provider Internal Medicine
DX: E78.2 Mixed hyperlipidemia (principal); I12.9 Hypertensive chronic kidney disease with stage 1 through stage 4 chronic kidney disease, or unspecified chronic kidney disease; N18.2 Chronic kidney disease, stage 2 (mild); R73.01 Impaired fasting glucose; M81.0 Age-related osteoporosis without current pathological fracture; I51.81 Takotsubo syndrome; I50.9 Heart failure, unspecified
CPT/HCPCS: 36415; 80053; 80061; 81001; 82306; 83036; 83880; 84439; 84443; 85025; 85055

== ENCOUNTER 2022-02-03 12:11 | Outpatient (CLI) | payer MEDICARE, BC, SELFPAY ==
--- NOTE | 2022-02-03 13:22 | ECHO_ITS ---
Patient Info Name: Toya Voss Age: 86 years : 1935 Gender: Female Ht: 61 in Wt: 117 lbs BSA: 1.52 m2 HR: 72 bpm BP: 158 / 78 mmHg Technical Quality: Good Exam Date: 02/03/2022 1:22 PM Exam Location: [facility] Patient Status: Outpatient Admit Date: 02/03/2022 Staff Ordering Physician: Mahendra Perez MD Technical Sales Support Specialist: Chris Gordillo RDCS, RT Attending Provider: Mahendra Perez MD Referring Physician: Chris CHIU; Exam Type: CA echo doppler color flow Study Info Indications I50.9 - Heart failure, unspecified Complete two-dimensional, color flow and Doppler transthoracic echocardiogram is performed. Strain analysis performed. Summary 1. Complete two-dimensional, color flow and Doppler transthoracic echocardiogram is performed. 2. Left ventricular chamber dimension is normal. 3. Left ventricular systolic function is normal, estimated at 60-65%. 4. The left ventricular diastolic function is grade I diastolic dysfunction. 5. E/e' 11 is mildly elevated. 6. Global longitudinal strain is normal at -22.0%. 7. There is mild aortic valve sclerosis. 8. There is mild aortic valve regurgitation. Left Ventricle E/e' 11 is mildly elevated. Global longitudinal strain is normal at -22.0%. Left ventricular chamber dimension is normal. Left ventricular systolic function is normal, estimated at 60-65%. The left ventricular diastolic function is grade I diastolic dysfunction. Right Ventricle Right ventricular systolic function is normal and with normal TAPSE 1.8 cm. Right ventricular chamber dimension is normal. Left Atria Left atrial chamber dimension is normal. Right Atria Right atrial chamber dimension is normal. Aortic Valve The aortic valve is trileaflet. There is mild aortic valve sclerosis. There is no aortic valve stenosis. There is mild aortic valve regurgitation. Pulmonic Valve There is no pulmonic regurgitation. Mitral Valve There is no mitral valve stenosis. There is no mitral valve regurgitation. Tricuspid Valve There is no tricuspid valve regurgitation. Pericardium/Pleural There is no pericardial effusion. Inferior Vena Cava Normal inferior vena cava with >50% collapse upon inspiration consistent with normal right atrial pressure, 5 mmHg. Aorta The aortic root size at the sinus of Valsalva is normal. Left Ventricular Outflow Tract Name Value Normal LVOT 2D LVOT Diameter 2.0 cm LVOT Doppler LVOT Peak Velocity 94 cm/s LVOT Peak Gradient 4 mmHg LVOT Mean Gradient 2 mmHg LVOT VTI 22 cm LVOT VTI/AV VTI Ratio 0.9 LVOT Stroke Volume 69 ml Mitral Valve Name Value Normal MV Doppler MV Decel [place] 395 cm/s2
== END 2022-02-03 12:12 | disposition home or self-care (01) ==
LOC: CHSIMG 12:13
PROVIDERS: PCP Internal Medicine; Visit Provider Internal Medicine
DX: I50.9 Heart failure, unspecified (principal)
CPT/HCPCS: 93306

== ENCOUNTER 2022-07-18 07:55 | Outpatient (CLI) | payer MEDICARE, SELFPAY ==
[2022-07-18 08:25] LABS: Basophils Absolute Auto 0.03 K/mm3 (0.00-0.10); Basophils Percent Auto 0.6 % (0.0-1.0); Eosinophils Absolute Auto 0.01 K/mm3 (0.02-0.50); Eosinophils Percent Auto 0.2 % (1.0-6.0); Hematocrit 39.6 % (35.0-42.0); Hemoglobin 13.2 g/dL (11.7-13.8); Immature Granulocyte Absolute 0.02 K/mm3 (0.00-0.00); Immature Granulocyte Percent A 0.4 % (0.0-0.0); Lymphocytes Absolute Auto 1.74 K/mm3 (1.10-4.50); Lymphocytes Percent Auto 35.7 % (18.0-42.0); Mean Corpuscular HGB Conc 33.3 g/dL (32.0-36.0); Mean Corpuscular Hemoglobin 31.6 pg (27.0-31.0); Mean Corpuscular Volume 94.7 fL (78.0-102.0); Mean Platelet Volume 11.1 fl (9.2-11.8); Monocytes Absolute Auto 0.31 K/mm3 (0.10-0.90); Monocytes Percent Auto 6.4 % (2.0-11.0); Neutrophils Absolute Auto 2.8 K/mm3 (1.7-7.2); Neutrophils Percent Auto 56.7 % (50.0-70.0); Platelet Count Result 235 K/mm3 (150-420); Red Blood Count 4.18 M/mm3 (4.20-5.40); Red Cell Distribution Width 13.2 % (11.6-14.4); White Blood Count 4.9 K/mm3 (4.8-10.8)
[2022-07-18 08:31] LABS: Appearance Urine Clear (Clear); Bilirubin Urine Negative (Negative); Blood Urine Negative (Negative); Color Urine Light Yellow (Yellow); Glucose Urine UA Negative (Negative); Ketones Urine Negative (Negative); Leukocyte Esterase Ur 1+ (Negative); Nitrate Urine Negative (Negative); Protein Urine Negative (Negative); Urobilinogen Urine 0.2 mg/dL (0.2-1.0); pH Urine 5.5 (5.0-8.0)
[2022-07-18 08:38] LABS: Add Urine Microscopic? YES; RBC Urine None seen /hpf (0-2); Squamous Epithelial Cell Urine Few /hpf (Few); WBC Urine 0-3 /hpf (0-3)
[2022-07-18 08:39] LABS: Bacteria Urine Rare /hpf
[2022-07-18 09:29] LABS: Alanine Aminotransferase 27 U/L (14-59); Albumin Level 4.1 g/dL (3.4-5.0); Alkaline Phosphatase 60 U/L (46-116); Anion Gap 9 mmol/L (8-16); Aspartate Amino Transferase 30 U/L (15-37); Bilirubin,Total 0.5 mg/dL (0.00-1.00); Blood Urea Nitrogen 24 mg/dL (7-18); Calcium 9.9 mg/dL (8.5-10.1); Carbon Dioxide 26 mmol/L (21-32); Chloride 105 mmol/L (98-108); Cholesterol 207 mg/dL (0-200); Estimated Glomerular Filt Rate 58; Free T3 2.18 pg/mL (2.18-3.98); Glucose 90 mg/dL (70-99); HDL Direct 80 mg/dL (40-60); LDL Cholesterol Calculated 113 mg/dL (<130); NT Pro B Type Natriuretic Pept 659 pg/mL (0-450); Osmolality Calculated 294 mOsm/kg (285-295); Potassium 4.6 mmol/L (3.5-5.1); Sodium 140 mmol/L (136-145); Thyroid Stimulating Hormone 2.94 uIU/mL (0.36-3.74); Total Protein 6.7 g/dL (6.4-8.2); Triglycerides 69 mg/dL (0-150)
== END 2022-07-18 07:56 | disposition home or self-care (01) ==
LOC: CHSLAB 07:57
PROVIDERS: PCP Internal Medicine; Visit Provider Internal Medicine
DX: I10 Essential (primary) hypertension (principal); E78.2 Mixed hyperlipidemia; R73.01 Impaired fasting glucose; I50.32 Chronic diastolic (congestive) heart failure; I51.81 Takotsubo syndrome
CPT/HCPCS: 36415; 80053; 80061; 81001; 83880; 84439; 84443; 84481; 85025

== ENCOUNTER 2022-08-24 15:47 | Emergency (ER) | payer MEDICARE, BC, SELFPAY ==
[2022-08-24] VITALS (21 sets, daily range): BP systolic 130–161; BP diastolic 46–99; PULSE 64–84; RESP 14–21; TEMP 36.6; O2SAT 92–99
--- NOTE | ~2022-08-24 | XR_ITS ---
EXAMINATION: XR chest 2V Exam Date/Time: 08/24/2022 16:39 CDT HISTORY: syncope Comparison: 10/01/2016. RESULT: Lines, tubes, and devices: None. Lungs and pleura: Emphysematous/senescent changes, scattered calcified granulomas, otherwise clear. Cardiomediastinal silhouette: Stable. Other: No acute osseous or upper abdominal finding. Osteopenia. Thoracolumbar scoliosis. IMPRESSION: No acute cardiopulmonary process. Reviewed, dictated and finalized at location K.
--- NOTE | 2022-08-24 16:33 | ECG_ITS ---
Measurements Intervals [place] Rate: 69 P: 88 NM: 154 QRS: -16 QRSD: 77 T: 40 QT: 402 QTc: 432 Interpretive Statements SINUS RHYTHM WITH SINUS ARRHYTHMIA RSR' IN V1 OR V2, PROBABLY NORMAL VARIANT BORDERLINE ECG COMPARED TO ECG 07/15/2021 13:41:16 NO SIGNIFICANT CHANGES Electronically Signed On 08-24-2022 18:50:15 CDT by Sonido Jimenez D.O.
[2022-08-24] MEDS: SODIUM CHLORIDE 0.9% IV 1,000 ML 999 ML IV CONT (17:01)
--- NOTE | 2022-08-24 17:06 | ED.GENADULT ---
HPI - General Adult General Chief complaint: Unspecified Stated complaint: heart palpitations Time Seen by Provider: 08/24/22 16:06 History of Present Illness HPI narrative: Patient is an 87-year-old female with a history of hypertension, hyperlipidemia presenting with heart palpitations. Patient states that she was able to go to conf[employer]ianist this morning. She then went to a friend's house and had 2 beers. States that the only thing she ate was a couple of M&Ms. She went home and was sitting outside when she became lightheaded, nauseated, diaphoretic, and felt generally weak. States that it felt like her heart was pounding. EMS was called and found her to have a glucose of 60. She was given an amp and immediately started to feel better. Patient's family insisted that she come in for evaluation. She denies any complaints. States that she feels at baseline. She denies any chest pain or shortness of breath. No numbness or weakness, vision changes, speech changes. No abdominal pain, vomiting, diarrhea, dysuria. Reports unchanged chronic bilateral lower extremity swelling. Related Data Home Medications Medication Instructions Recorded Confirmed pravastatin 40 mg tablet 40 mg PO HS 07/20/19 07/15/21 triamterene 37.5 1 tablet PO QAM 01/31/20 07/15/21 mg-hydrochlorothiazide 25 mg tablet Allergies Allergy/AdvReac Type Severity Reaction Status Date / Time atropine AdvReac Mild EYE Verified 08/24/22 15:56 REDNESS, IRRITATION Review of Systems Review of Systems: All systems reviewed & are unremarkable except as noted in HPI and below [facility] Past Medical History Medical History GERD (gastroesophageal reflux disease) History of heart attack stress OR - no treatment Hyperlipidemia Hypertension Ovary cancer Surgical History Surgical History History of hip surgery History of hysterectomy Social History Social History Smoking status: Former smoker Alcohol intake: current Drinks per week: 6 Substance use: never Living arrangements: with family Additional living arrangements comments: DAUGHTER AND HER HUSB Spiritual care concerns: No Exam Narrative: GENERAL: Elderly female sitting up in bed in no acute distress, pleasant and cooperative HEAD: Normocephalic, atraumatic. EYES: Left pupil is irregular which is related to a childhood injury ENT: Nares clear, no rhinorrhea or epistaxis. Mucous membranes moist. NECK: Supple. CHEST: Clear to auscultation. No respiratory distress. HEART: Regular rate and rhythm. No murmur heard. Normal peripheral pulses. ABDOMEN: Soft, nontender, nondistended EXTREMITIES: Normal range of motion. 1+ pitting edema to bilateral ankles SKIN: Warm, dry, no rash. NEURO: No focal deficits. Alert and oriented x3. PSYCH: Normal mood and affect. Course Vital Signs Vital signs: Vital Signs Temperature 97.9 F 08/24/22 15:49 Pulse Rate 79 08/24/22 15:49 Respiratory Rate 17 08/24/22 15:49 Blood Pressure 148/59 H 08/24/22 15:49 Pulse Oximetry 99 08/24/22 15:49 Oxygen Delivery Room Air 08/24/22 15:49 Temperature 97.9 F 08/24/22 15:49 Pulse Rate 67 08/24/22 19:03 Respiratory Rate 18 08/24/22 19:03 Blood Pressure 148/47 H 08/24/22 19:03 Pulse Oximetry 99 08/24/22 19:03 Oxygen Delivery Room Air 08/24/22 15:49 Medical Decision Making MDM Narrative Medical decision making narrative: Patient is an 87-year-old female presenting with generalized weakness, nausea, diaphoresis associated with an episode of hypoglycemia. Vitals here are within normal limits. Patient is well-appearing and in no acute distress. She denies any complaints at this time. States that she does not want to be here. Exam is remarkable for the above. EKG per my interpretation shows s
[2022-08-24 17:13] LABS: Basophils Percent Auto 0.7 % (0.2-1.2); Eosinophils Percent Auto 0.2 % (0-4.4); Hematocrit 38.9 % (37.0-47.0); Immature Granulocyte Absolute 0.02 K/mm3 (0.00-0.031); Immature Granulocyte Percent A 0.3 % (0-0.5); Lymphocytes Absolute Auto 1.02 K/mm3 (0.9-3.2); Lymphocytes Percent Auto 16.6 % (18.3-44.2); Mean Corpuscular HGB Conc 33.4 g/dl (32-36); Mean Corpuscular Hemoglobin 31.4 pg (26-34); Mean Platelet Volume 10.8 fl (7.4-10.4); Monocytes Absolute Auto 0.4 K/mm3 (0.1-0.6); Monocytes Percent Auto 6.2 % (2.6-8.5); Neutrophils Absolute Auto 4.7 K/mm3 (1.3-6.7); Platelet Count Result 217 k/mm3 (150-375); Red Blood Count 4.14 M/mm3 (4.2-5.4); Red Cell Distribution Width 13.2 % (11.5-14.5); White Blood Count 6.2 K/mm3 (4.5-10.0)
[2022-08-24 17:20] LABS: Appearance Urine Clear (Clear); Bacteria Urine None Seen /hpf; Bilirubin Urine Negative (Negative); Blood Urine Negative (Negative); Color Urine Yellow (Yellow); Glucose Urine UA Negative (Negative); Ketones Urine Negative (Negative); Leukocyte Esterase Ur Trace LEU/UL (Negative); Nitrate Urine Negative (Negative); Non Pathogenic Casts 0-2; Protein Urine Negative (Negative); RBC Urine 0-2 /hpf (0-2); Squamous Epithelial Cell Urine None seen /hpf (Few); Urobilinogen Urine 0.2 mg/dL (<2.0); WBC Urine 0-5 /hpf
[2022-08-24 17:25] LABS: Lactic Acid Reflex 1.5 mmol/L (0.7-2.0)
[2022-08-24 17:27] LABS: Alanine Aminotransferase 33 U/L (6-35); Albumin Level 4.7 g/dL (3.5-5.1); Alkaline Phosphatase 61 U/L (38-126); Anion Gap 5 mmol/L (8-16); Aspartate Amino Transferase 44 U/L (14-36); Bilirubin,Total 0.4 mg/dL (0.2-1.3); Blood Urea Nitrogen 22 mg/dL (7-17); Calcium 10.1 mg/dL (8.4-10.2); Carbon Dioxide 27 mmol/L (22-30); Chloride 103 mmol/L (98-107); Estimated CRCL calculation 33 ml/min; Estimated Glomerular Filt Rate > 60; Glucose 101 mg/dL (65-110); Lipase 247 U/L (23-300); Magnesium 2.2 mg/dL (1.6-2.3); Potassium 4.3 mmol/L (3.4-5.0); Sodium 135 mmol/L (137-145)
[2022-08-24 17:28] LABS: Add Urine Microscopic? YES
[2022-08-24 17:28] LABS: Ethanol < 10 mg/dL (<10)
[2022-08-24 17:33] LABS: INR 0.9; Partial Thromboplastin Time 25.3 SECONDS (22.3-36.8); Prothrombin Time 12.3 Seconds (11.1-14.7)
[2022-08-24 17:38] LABS: NT Pro B Type Natriuretic Pept 780 pg/mL (19.9-100); Troponin I < 0.012 ng/mL (0.000-0.034)
== END 2022-08-24 19:05 | disposition home or self-care (01) ==
PROVIDERS: Emergency Provider Emergency Medicine; PCP Internal Medicine
DX: E16.2 Hypoglycemia, unspecified (principal); R53.1 Weakness; I10 Essential (primary) hypertension; E78.5 Hyperlipidemia, unspecified; I25.2 Old myocardial infarction; K21.9 Gastro-esophageal reflux disease without esophagitis; R60.0 Localized edema; Z85.43 Personal history of malignant neoplasm of ovary; Z87.891 Personal history of nicotine dependence; R94.31 Abnormal electrocardiogram [ECG] [EKG]; Z79.899 Other long term (current) drug therapy
CPT/HCPCS: 36415; 71046; 80053; 80307; 81001; 83605; 83690; 83735; 83880; 84484; 85025; 85610; 85730; 93005; 96360; 99284; J7030

== ENCOUNTER 2022-11-10 08:19 | Outpatient (CLI) | payer MEDICARE, BC, SELFPAY ==
--- NOTE | ~2022-11-10 | MM_ITS ---
EXAMINATION: MM screening diya BI w phoebe HISTORY: Screening mammogram TECHNIQUE: Craniocaudal and mediolateral oblique 3-D tomosynthesis images were obtained and synthetic 2-D images were generated. CAD analysis was submitted and interpreted. COMPARISON: 11/01/2021 diagnostic left mammogram and limited left breast ultrasound 10/30/2020, 10/23/2020 bilateral screening mammogram examinations BREAST PARENCHYMAL COMPOSITION: There are scattered areas of fibroglandular density. FINDINGS: Biopsy marker on the left; history of prior bilateral benign breast biopsies. Bilateral oh ign calcifications. There is no evidence of suspicious mass, calcification, or architectural distorti on to suggest malignancy in either breast. There has been no suspicious interval change. IMPRESSION: 1. No mammographic evidence of malignancy. 2. Recommend routine screening mammography in one year. BI-RADS Category 2: Benign finding(s). Reviewed, dictated and finalized at location A.
== END 2022-11-10 08:20 | disposition home or self-care (01) ==
LOC: CHSIMG 08:20
PROVIDERS: PCP Internal Medicine; Visit Provider Internal Medicine
DX: Z12.31 Encounter for screening mammogram for malignant neoplasm of breast (principal)
CPT/HCPCS: 77063; 77067

== ENCOUNTER 2023-01-16 07:31 | Outpatient (CLI) | payer MEDICARE, SELFPAY ==
[2023-01-16 07:46] LABS: Basophils Absolute Auto 0.03 K/mm3 (0.00-0.10); Basophils Percent Auto 0.6 % (0.0-1.0); Eosinophils Absolute Auto 0.02 K/mm3 (0.02-0.50); Eosinophils Percent Auto 0.4 % (1.0-6.0); Hematocrit 40.9 % (35.0-42.0); Hemoglobin 13.4 g/dL (11.7-13.8); Immature Granulocyte Absolute 0.02 K/mm3 (0.00-0.00); Immature Granulocyte Percent A 0.4 % (0.0-0.0); Lymphocytes Absolute Auto 1.77 K/mm3 (1.10-4.50); Mean Corpuscular HGB Conc 32.8 g/dL (32.0-36.0); Mean Corpuscular Hemoglobin 30.9 pg (27.0-31.0); Mean Corpuscular Volume 94.5 fL (78.0-102.0); Mean Platelet Volume 10.4 fl (9.2-11.8); Monocytes Percent Auto 6.3 % (2.0-11.0); Neutrophils Absolute Auto 2.7 K/mm3 (1.7-7.2); Neutrophils Percent Auto 55.3 % (50.0-70.0); Platelet Count Result 251 K/mm3 (150-420); Red Blood Count 4.33 M/mm3 (4.20-5.40); Red Cell Distribution Width 12.8 % (11.6-14.4); White Blood Count 4.8 K/mm3 (4.8-10.8)
[2023-01-16 07:50] LABS: Appearance Urine Clear (Clear); Bilirubin Urine Negative (Negative); Blood Urine Negative (Negative); Color Urine Light Yellow (Yellow); Glucose Urine UA Negative (Negative); Ketones Urine Negative (Negative); Leukocyte Esterase Ur 2+ (Negative); Nitrate Urine Negative (Negative); Protein Urine Negative (Negative); Specific Grav Ur 1.025 (1.010-1.020); Urobilinogen Urine 0.2 mg/dL (0.2-1.0); pH Urine 5.5 (5.0-8.0)
[2023-01-16 07:56] LABS: Add Urine Microscopic? YES; Bacteria Urine 1+ /hpf; RBC Urine None seen /hpf (0-2); Squamous Epithelial Cell Urine Few /hpf (Few)
[2023-01-16 07:57] LABS: Hemoglobin A1C 5.1 % (<5.7)
[2023-01-16 08:45] LABS: Alanine Aminotransferase 33 U/L (14-59); Albumin Level 4.7 g/dL (3.4-5.0); Alkaline Phosphatase 59 U/L (46-116); Aspartate Amino Transferase 26 U/L (15-37); Bilirubin,Total 0.6 mg/dL (0.00-1.00); Blood Urea Nitrogen 22 mg/dL (7-18); Chloride 106 mmol/L (98-108); Cholesterol 198 mg/dL (0-200); Estimated Glomerular Filt Rate 54; Glucose 93 mg/dL (70-99); HDL Direct 79 mg/dL (40-60); LDL Cholesterol Calculated 102 mg/dL (<130); NT Pro B Type Natriuretic Pept 574 pg/mL (0-450); Osmolality Calculated 299 mOsm/kg (285-295); Potassium 4.3 mmol/L (3.5-5.1); Sodium 143 mmol/L (136-145); Total Protein 7.2 g/dL (6.4-8.2); Triglycerides 86 mg/dL (0-150)
[2023-01-16 08:52] LABS: Anion Gap 10 mmol/L (8-16); Carbon Dioxide 27 mmol/L (21-32)
== END 2023-01-16 07:32 | disposition home or self-care (01) ==
LOC: CHSLAB 07:34
PROVIDERS: PCP Internal Medicine; Visit Provider Internal Medicine
DX: E78.2 Mixed hyperlipidemia (principal); I10 Essential (primary) hypertension; R73.01 Impaired fasting glucose; E79.0 Hyperuricemia without signs of inflammatory arthritis and tophaceous disease; I50.9 Heart failure, unspecified
CPT/HCPCS: 36415; 80053; 80061; 81001; 83036; 83880; 84550; 85025

== ENCOUNTER 2023-03-03 08:30 | Outpatient (CLI) | payer MEDICARE, SELFPAY ==
[2023-03-03 09:57] LABS: Anion Gap 10 mmol/L (8-16); Blood Urea Nitrogen 25 mg/dL (7-18); Calcium 9.7 mg/dL (8.5-10.1); Carbon Dioxide 27 mmol/L (21-32); Chloride 101 mmol/L (98-108); Estimated Glomerular Filt Rate 47; Glucose 130 mg/dL (70-99); NT Pro B Type Natriuretic Pept 638 pg/mL (0-450); Osmolality Calculated 292 mOsm/kg (285-295); Potassium 3.8 mmol/L (3.5-5.1); Sodium 138 mmol/L (136-145)
== END 2023-03-03 08:31 | disposition home or self-care (01) ==
LOC: CHSLAB 08:32
PROVIDERS: PCP Internal Medicine; Visit Provider Internal Medicine
DX: I50.9 Heart failure, unspecified (principal)
CPT/HCPCS: 36415; 80048; 83880

== ENCOUNTER 2023-03-23 12:38 | Outpatient (CLI) | payer MEDICARE, BC, SELFPAY ==
--- NOTE | 2023-03-23 12:45 | ECHO_ITS ---
Patient Info Name: Toya Voss Age: 87 years : 1935 Gender: Female Ht: 61 in Wt: 114 lbs BSA: 1.50 m2 HR: 78 bpm BP: 167 / 89 mmHg Heart Rhythm: Sinus Rhythm Technical Quality: Good Exam Date: 03/23/2023 1:43 PM Exam Location: [facility] Patient Status: Outpatient Admit Date: 03/23/2023 Staff Ordering Physician: Mahendra Perez MD Truck Sales Representative: Jean Marie Penn RDCS Attending Provider: Mahendra Perez MD Referring Physician: Chris CHIU; Exam Type: CA echo doppler color flow Study Info Indications - CHF Complete two-dimensional, color flow and Doppler transthoracic echocardiogram is performed. Summary 1. Complete two-dimensional, color flow and Doppler transthoracic echocardiogram is performed. 2. Left ventricular chamber dimension is normal. 3. Left ventricular systolic function is normal, estimated at 65-70%. 4. The left ventricular diastolic function is grade I diastolic dysfunction. 5. E/e' 11 is mildly elevated. 6. Left atrial chamber dimension is mildly enlarged. 7. There is trace aortic valve regurgitation. 8. The mitral valve has mildly calcified annulus. 9. There is trace mitral valve regurgitation. 10. There is trace tricuspid valve regurgitation. 11. No pulmonary hypertension, estimated pulmonary arterial systolic pressure is 30 mmHg. 12. There is trace pulmonic regurgitation. Left Ventricle E/e' 11 is mildly elevated. Left ventricular chamber dimension is normal. Left ventricular systolic function is normal, estimated at 65-70%. The left ventricular diastolic function is grade I diastolic dysfunction. Right Ventricle Right ventricular systolic function is normal and with normal TAPSE 2.6 cm. Right ventricular chamber dimension is normal. Left Atria Left atrial chamber dimension is mildly enlarged. Right Atria Right atrial chamber dimension is normal. Aortic Valve The aortic valve is trileaflet. There is no aortic valve stenosis. There is trace aortic valve regurgitation. Pulmonic Valve There is trace pulmonic regurgitation. Mitral Valve The mitral valve has mildly calcified annulus. There is no mitral valve stenosis. There is trace mitral valve regurgitation. Tricuspid Valve There is trace tricuspid valve regurgitation. No pulmonary hypertension, estimated pulmonary arterial systolic pressure is 30 mmHg. Pericardium/Pleural There is no pericardial effusion. Inferior Vena Cava Normal inferior vena cava with >50% collapse upon inspiration consistent with normal right atrial pressure, 5 mmHg. Aorta The aortic root size at the sinus of Valsalva is normal. Left Ventricular Outflow Tract Name Value Normal LVOT 2D LVOT Diameter 1.9 cm LVOT Doppler LVOT Peak Velocity 86 cm/s LVOT Peak Gradient 3 mmHg LVOT Mean Gradient 2 mmHg LVOT VTI 25 cm LVOT VTI/AV VTI Ratio 0.8 LVOT Stroke Volume 68 ml Pulmonic Valve Name Value Normal
== END 2023-03-23 12:39 | disposition home or self-care (01) ==
LOC: CHSIMG 12:39
PROVIDERS: PCP Internal Medicine; Visit Provider Internal Medicine
DX: I50.9 Heart failure, unspecified (principal); I51.7 Cardiomegaly
CPT/HCPCS: 93306

== ENCOUNTER 2023-04-10 14:57 | Outpatient (CLI) | payer MEDICARE, BC, SELFPAY ==
--- NOTE | ~2023-04-10 | CT_ITS ---
EXAMINATION: CT brain wo con DATE: 04/10/2023 15:35 INDICATION: Head injury. TECHNIQUE: Computed tomography (CT) of the head was performed without intravenous contrast. The mA wa s adjusted according to patient size. Iterative reconstruction technique was employed. The dose-lengt h product was 605.33 mGy-cm. COMPARISON: None FINDINGS: There are scattered areas of low attenuation in the cerebral white matter, which is within normal limits for the patient's age. There is no intracranial hemorrhage, acute infarction, or abnorm al intracranial mass lesion. The ventricles are normal in size. There are likely changes of ocular le ns replacement surgeries. There is mild mucosal thickening in the paranasal sinuses. The mastoid air cells are normal. IMPRESSION: 1. Normal aging brain. Reviewed, dictated and finalized at location E. H GROWER IMPRESSION: 1. Normal aging brain.
--- NOTE | ~2023-04-10 | XR_ITS ---
EXAMINATION: XR cervical spine 4-5V DATE: 04/10/2023 15:35 INDICATION: Posterior head injury. Dizziness. TECHNIQUE: 4 views of cervical spine were obtained. COMPARISON: None. FINDINGS: There is 6 degrees levocurvature of cervical spine. There is 2 mm retrolisthesis of C4 on C 5, C5 on C6, and C6 on C7. There is 2 mm anterolisthesis of C7 on T1. Vertebral body heights are norm al. There is severely decreased disc height from C3-C4 through C6-C7 and moderately decreased disc he ight at C7-T1. There is multilevel severe facet joint osteoarthritis. There is mild central canal aneudy nosis at C3-C4, C4-C5, C5-C6, and C6-C7. No prevertebral soft tissue swelling. IMPRESSION: 1. Severe cervical spondylosis. Reviewed, dictated and finalized at location E. AL NUTRITIONIST
[2023-04-10 15:21] LABS: Basophils Absolute Auto 0.04 K/mm3 (0.00-0.10); Basophils Percent Auto 0.6 % (0.0-1.0); Eosinophils Absolute Auto 0.01 K/mm3 (0.02-0.50); Eosinophils Percent Auto 0.1 % (1.0-6.0); Hematocrit 39.5 % (35.0-42.0); Hemoglobin 13.2 g/dL (11.7-13.8); Immature Granulocyte Absolute 0.02 K/mm3 (0.00-0.00); Immature Granulocyte Percent A 0.3 % (0.0-0.0); Lymphocytes Absolute Auto 2.29 K/mm3 (1.10-4.50); Lymphocytes Percent Auto 33.1 % (18.0-42.0); Mean Corpuscular HGB Conc 33.4 g/dL (32.0-36.0); Mean Corpuscular Hemoglobin 30.7 pg (27.0-31.0); Mean Corpuscular Volume 91.9 fL (78.0-102.0); Mean Platelet Volume 10.9 fl (9.2-11.8); Monocytes Absolute Auto 0.37 K/mm3 (0.10-0.90); Monocytes Percent Auto 5.4 % (2.0-11.0); Neutrophils Absolute Auto 4.2 K/mm3 (1.7-7.2); Neutrophils Percent Auto 60.5 % (50.0-70.0); Platelet Count Result 196 K/mm3 (150-420); Red Cell Distribution Width 12.8 % (11.6-14.4); White Blood Count 6.9 K/mm3 (4.8-10.8)
[2023-04-10 15:24] LABS: Appearance Urine Clear (Clear); Bilirubin Urine Negative (Negative); Blood Urine Negative (Negative); Color Urine Light Yellow (Yellow); Glucose Urine UA Negative (Negative); Ketones Urine Negative (Negative); Leukocyte Esterase Ur 1+ LEU/UL (Negative); Nitrate Urine Negative (Negative); Protein Urine Negative (Negative); Specific Grav Ur <= 1.005 (1.010-1.020); Urobilinogen Urine 0.2 mg/dL (0.2-1.0)
[2023-04-10 15:30] LABS: Alanine Aminotransferase 26 U/L (14-59); Albumin Level 4.2 g/dL (3.4-5.0); Alkaline Phosphatase 63 U/L (46-116); Anion Gap 10 mmol/L (8-16); Aspartate Amino Transferase 25 U/L (15-37); Bilirubin,Total 0.4 mg/dL (0.00-1.00); Blood Urea Nitrogen 22 mg/dL (7-18); Calcium 9.6 mg/dL (8.5-10.1); Carbon Dioxide 25 mmol/L (21-32); Chloride 102 mmol/L (98-108); Estimated Glomerular Filt Rate 55; Glucose 106 mg/dL (70-99); Osmolality Calculated 287 mOsm/kg (285-295); Potassium 3.9 mmol/L (3.5-5.1); Sodium 137 mmol/L (136-145); Total Protein 7.4 g/dL (6.4-8.2)
[2023-04-10 15:34] LABS: Add Urine Microscopic? YES; Bacteria Urine Trace /hpf; RBC Urine None seen /hpf (0-2); Squamous Epithelial Cell Urine Occasional /hpf (Few); WBC Urine 0-5 /hpf (0-3)
== END 2023-04-10 14:58 | disposition home or self-care (01) ==
LOC: CHSLAB 15:00
PROVIDERS: PCP Internal Medicine; Visit Provider Internal Medicine
DX: S09.90XA Unspecified injury of head, initial encounter (principal); R42 Dizziness and giddiness; M54.2 Cervicalgia; R82.90 Unspecified abnormal findings in urine; M43.02 Spondylolysis, cervical region
CPT/HCPCS: 36415; 70450; 72050; 80053; 81001; 85025; 87086

== ENCOUNTER 2023-08-17 07:28 | Outpatient (CLI) | payer MEDICARE, BC, SELFPAY ==
[2023-08-17 07:44] LABS: Basophils Absolute Auto 0.03 K/mm3 (0.00-0.10); Basophils Percent Auto 0.5 % (0.0-1.0); Eosinophils Absolute Auto 0.02 K/mm3 (0.02-0.50); Eosinophils Percent Auto 0.3 % (1.0-6.0); Hematocrit 39.7 % (35.0-42.0); Hemoglobin 13.2 g/dL (11.7-13.8); Immature Granulocyte Absolute 0.02 K/mm3 (0.00-0.00); Immature Granulocyte Percent A 0.3 % (0.0-0.0); Lymphocytes Absolute Auto 2.06 K/mm3 (1.10-4.50); Mean Corpuscular HGB Conc 33.2 g/dL (32-36); Mean Corpuscular Hemoglobin 30.8 pg (27.0-31.0); Mean Corpuscular Volume 92.8 fL (78.0-102.0); Mean Platelet Volume 10.1 fl (9.2-11.8); Monocytes Absolute Auto 0.38 K/mm3 (0.10-0.90); Monocytes Percent Auto 6.6 % (2.0-11.0); Neutrophils Absolute Auto 3.21 K/mm3 (1.70-7.20); Neutrophils Percent Auto 56.3 % (50.0-70.0); Platelet Count Result 277 K/mm3 (150-420); Red Blood Count 4.28 M/mm3 (4.20-5.40); Red Cell Distribution Width 13.1 % (11.6-14.4); White Blood Count 5.7 K/mm3 (4.8-10.8)
[2023-08-17 07:46] LABS: Appearance Urine Clear (Clear); Bilirubin Urine Negative (Negative); Blood Urine Negative (Negative); Color Urine Light Yellow (Yellow); Glucose Urine UA Negative (Negative); Ketones Urine Negative (Negative); Leukocyte Esterase Ur 2+ (Negative); Nitrate Urine Negative (Negative); Protein Urine Negative (Negative); Urobilinogen Urine 0.2 mg/dL (0.2-1.0); pH Urine 5.5 (5.0-8.0)
[2023-08-17 07:54] LABS: Add Urine Microscopic? YES
[2023-08-17 07:55] LABS: Amorphous Sediment Urine Few; Bacteria Urine None seen /hpf; RBC Urine None seen /hpf (0-2); Squamous Epithelial Cell Urine Few /hpf (Few); Transitional Epi Cells Urine Few /hpf; WBC Urine 31-50 /hpf (0-3)
[2023-08-17 08:08] LABS: Hemoglobin A1C 5.5 % (<5.7)
[2023-08-17 08:38] LABS: Alanine Aminotransferase 11 U/L (14-59); Albumin Level 4.2 g/dL (3.4-5.0); Alkaline Phosphatase 60 U/L (46-116); Anion Gap 12 mmol/L (4-12); Aspartate Amino Transferase 25 U/L (15-37); Bilirubin,Total 0.5 mg/dL (0.00-1.00); Blood Urea Nitrogen 22 mg/dL (7-18); Calcium 9.9 mg/dL (8.5-10.1); Carbon Dioxide 25 mmol/L (21-32); Chloride 103 mmol/L (98-108); Cholesterol 191 mg/dL (0-200); Estimated Glomerular Filt Rate > 60; Free T3 2.72 pg/mL (2.18-3.98); Free T4 Free Thyroxine 1.01 ng/dL (0.76-1.46); Glucose 98 mg/dL (70-99); HDL Direct 77 mg/dL (40-60); LDL Cholesterol Calculated 97 mg/dL (<130); NT Pro B Type Natriuretic Pept 545 pg/mL (0-450); Osmolality Calculated 293 mOsm/kg (285-295); Sodium 140 mmol/L (136-145); Thyroid Stimulating Hormone 4.38 uIU/mL (0.36-3.74); Triglycerides 85 mg/dL (0-150); Uric Acid 6.7 mg/dL (2.6-6.0)
== END 2023-08-17 07:29 | disposition home or self-care (01) ==
LOC: CHSLAB 07:30
PROVIDERS: PCP Internal Medicine; Visit Provider Internal Medicine
DX: E79.0 Hyperuricemia without signs of inflammatory arthritis and tophaceous disease (principal); R73.01 Impaired fasting glucose; I50.9 Heart failure, unspecified; R00.2 Palpitations; I10 Essential (primary) hypertension
CPT/HCPCS: 36415; 80053; 80061; 81001; 83036; 83880; 84439; 84443; 84481; 84550; 85025

== ENCOUNTER 2023-10-08 14:23 | Outpatient (CLI) | payer MEDICARE, BC, SELFPAY ==
--- NOTE | 2023-10-08 14:29 | ECHO_ITS ---
Patient Info Name: Toya Voss Age: 88 years : 1935 Gender: Female Ht: 62 in Wt: 111 lbs BSA: 1.48 m2 HR: 75 bpm BP: 162 / 91 mmHg Heart Rhythm: Sinus Rhythm Technical Quality: Good Exam Date: 10/08/2023 2:20 PM Exam Location: [facility] Patient Status: Outpatient Admit Date: 10/08/2023 Staff Ordering Physician: Mahendra Perez MD Spindle Frame Carver: Jean Marie Penn RDCS Attending Provider: Mahendra Perez MD Referring Physician: Chris CHIU; Exam Type: CA echo doppler color flow Study Info Indications - CHF Complete two-dimensional, color flow and Doppler transthoracic echocardiogram is performed. Summary 1. Complete two-dimensional, color flow and Doppler transthoracic echocardiogram is performed. 2. Left ventricular chamber dimension is normal. 3. Left ventricular systolic function is normal, estimated at 65-70%. 4. The left ventricular diastolic function is grade I diastolic dysfunction. 5. E/e' 13 is mildly elevated. 6. There is mild aortic valve sclerosis. 7. There is mild to moderate aortic valve regurgitation. 8. There is trace mitral valve regurgitation. 9. There is trace tricuspid valve regurgitation. 10. No pulmonary hypertension, estimated pulmonary arterial systolic pressure is 29 mmHg. Left Ventricle E/e' 13 is mildly elevated. Left ventricular chamber dimension is normal. Left ventricular systolic function is normal, estimated at 65-70%. The left ventricular diastolic function is grade I diastolic dysfunction. Right Ventricle Right ventricular systolic function is normal and with normal TAPSE 2.8 cm. Right ventricular chamber dimension is normal. Left Atria Left atrial chamber dimension is normal. Right Atria Right atrial chamber dimension is normal. Aortic Valve The aortic valve is trileaflet. There is mild aortic valve sclerosis. There is no aortic valve stenosis. There is mild to moderate aortic valve regurgitation. Pulmonic Valve There is no pulmonic regurgitation. Mitral Valve There is no mitral valve stenosis. There is trace mitral valve regurgitation. Tricuspid Valve There is trace tricuspid valve regurgitation. No pulmonary hypertension, estimated pulmonary arterial systolic pressure is 29 mmHg. Pericardium/Pleural There is no pericardial effusion. Inferior Vena Cava Normal inferior vena cava with >50% collapse upon inspiration consistent with normal right atrial pressure, 5 mmHg. Aorta The aortic root size at the sinus of Valsalva is normal. Left Ventricular Outflow Tract Name Value Normal LVOT 2D LVOT Diameter 1.7 cm Mitral Valve Name Value Normal MV Doppler MV Decel [place] 415 cm/s2 MV PHT 66 ms MV Area (PHT) 3.3 cm2 4.0-5.0 MV Diastolic Function MV E Peak Velocity 95 cm/s MV A Peak Velocity 92 cm/s MV E/A 1.0
== END 2023-10-08 14:24 | disposition home or self-care (01) ==
LOC: CHSIMG 14:24
PROVIDERS: PCP Internal Medicine; Visit Provider Internal Medicine
DX: I50.9 Heart failure, unspecified (principal); I35.1 Nonrheumatic aortic (valve) insufficiency
CPT/HCPCS: 93306

== ENCOUNTER 2023-11-13 07:49 | Outpatient (CLI) | payer MEDICARE, BC, SELFPAY ==
--- NOTE | ~2023-11-13 | MM_ITS ---
EXAMINATION: MM screening diya BI w phoebe HISTORY: Screening TECHNIQUE: Craniocaudal and mediolateral oblique 3-D tomosynthesis images were obtained and synthetic 2-D images were generated. CAD analysis was submitted and interpreted. COMPARISON: Comparison to multiple prior studies sequentially, with oldest reviewed study dated 08/2020. BREAST PARENCHYMAL COMPOSITION: Not dense: There are scattered areas of fibroglandular density. FINDINGS: There is no evidence of suspicious mass, calcification, or architectural distortion to sugg est malignancy in either breast. There has been no suspicious interval change. IMPRESSION: 1. No mammographic evidence of malignancy. 2. Recommend routine screening mammography in one year. BI-RADS CATEGORY 1 - NEGATIVE Reviewed, dictated and finalized at location B.
== END 2023-11-13 07:50 | disposition home or self-care (01) ==
LOC: CHSIMG 07:49
PROVIDERS: PCP Internal Medicine; Visit Provider Internal Medicine
DX: Z12.31 Encounter for screening mammogram for malignant neoplasm of breast (principal)
CPT/HCPCS: 77063; 77067

== ENCOUNTER 2024-01-25 08:39 | Outpatient (CLI) | payer MEDICARE, SELFPAY ==
[2024-01-25 09:32] LABS: Basophils Absolute Auto 0.03 K/mm3 (0.00-0.10); Basophils Percent Auto 0.6 % (0.0-1.0); Eosinophils Absolute Auto 0.02 K/mm3 (0.02-0.50); Eosinophils Percent Auto 0.4 % (1.0-6.0); Hematocrit 39.2 % (35.0-42.0); Hemoglobin 13.1 g/dL (11.7-13.8); Immature Granulocyte Absolute 0.02 K/mm3 (0.00-0.00); Immature Granulocyte Percent A 0.4 % (0.0-0.0); Lymphocytes Absolute Auto 1.51 K/mm3 (1.10-4.50); Lymphocytes Percent Auto 29.1 % (18.0-42.0); Mean Corpuscular HGB Conc 33.4 g/dL (32-36); Mean Corpuscular Hemoglobin 30.7 pg (27.0-31.0); Mean Corpuscular Volume 91.8 fL (78.0-102.0); Mean Platelet Volume 10.3 fl (9.2-11.8); Monocytes Absolute Auto 0.28 K/mm3 (0.10-0.90); Monocytes Percent Auto 5.4 % (2.0-11.0); Neutrophils Absolute Auto 3.33 K/mm3 (1.70-7.20); Neutrophils Percent Auto 64.1 % (50.0-70.0); Platelet Count Result 241 K/mm3 (150-420); Red Blood Count 4.27 M/mm3 (4.20-5.40); Red Cell Distribution Width 13.5 % (11.6-14.4); White Blood Count 5.2 K/mm3 (4.8-10.8)
[2024-01-25 09:34] LABS: Add Urine Microscopic? YES; Appearance Urine Clear (Clear); Bilirubin Urine Negative (Negative); Blood Urine Negative (Negative); Color Urine Light Yellow (Yellow); Glucose Urine UA Negative (Negative); Ketones Urine Negative (Negative); Leukocyte Esterase Ur Trace LEU/UL (Negative); Nitrate Urine Negative (Negative); Protein Urine Negative (Negative); Specific Grav Ur 1.025 (1.010-1.020); Urobilinogen Urine 0.2 mg/dL (0.2-1.0)
[2024-01-25 09:39] LABS: Bacteria Urine Rare /hpf; RBC Urine 0-2 /hpf (0-2); Squamous Epithelial Cell Urine Few /hpf (Few); WBC Urine 0-3 /hpf (0-3)
[2024-01-25 09:51] LABS: Hemoglobin A1C 5.4 % (<5.7)
[2024-01-25 10:16] LABS: Alanine Aminotransferase 32 U/L (14-59); Albumin Level 4.1 g/dL (3.4-5.0); Alkaline Phosphatase 61 U/L (46-116); Anion Gap 8 mmol/L (4-12); Aspartate Amino Transferase 26 U/L (15-37); Bilirubin,Total 0.5 mg/dL (0.00-1.00); Blood Urea Nitrogen 22 mg/dL (7-18); Calcium 9.9 mg/dL (8.5-10.1); Carbon Dioxide 28 mmol/L (21-32); Chloride 107 mmol/L (98-108); Cholesterol 203 mg/dL (0-200); Creatine Kinase 66 U/L (26-192); Estimated Glomerular Filt Rate > 60; Free T3 2.41 pg/mL (2.18-3.98); Free T4 Free Thyroxine 0.95 ng/dL (0.76-1.46); Glucose 94 mg/dL (70-99); HDL Direct 87 mg/dL (40-60); LDL Cholesterol Calculated 103 mg/dL (<130); NT Pro B Type Natriuretic Pept 572 pg/mL (0-450); Osmolality Calculated 299 mOsm/kg (285-295); Potassium 4.4 mmol/L (3.5-5.1); Sodium 143 mmol/L (136-145); Thyroid Stimulating Hormone 2.53 uIU/mL (0.36-3.74); Total Protein 6.6 g/dL (6.4-8.2); Triglycerides 65 mg/dL (0-150)
== END 2024-01-25 08:40 | disposition home or self-care (01) ==
LOC: CHSLAB 09:17
PROVIDERS: PCP Internal Medicine; Visit Provider Internal Medicine
DX: I10 Essential (primary) hypertension (principal); E78.2 Mixed hyperlipidemia; R73.01 Impaired fasting glucose; E55.9 Vitamin D deficiency, unspecified; I50.9 Heart failure, unspecified; N39.0 Urinary tract infection, site not specified
CPT/HCPCS: 36415; 80053; 80061; 81001; 82550; 83036; 83880; 84439; 84443; 84481; 85025

== ENCOUNTER 2024-03-13 12:28 | Emergency (ER) | payer MEDICARE, BC, SELFPAY ==
--- NOTE | ~2024-03-13 | XR_ITS ---
Portable chest x-ray Comparison: 08/24/2022 Clinical History: Syncope Findings: Lungs are clear, without focal consolidation or pleural effusion. Cardiomediastinal silho uette is stable. Bones and soft tissues are unremarkable. Impression: Clear lungs. Reviewed, dictated and finalized at location . ETIC GRINDER OPERATOR Impression: Clear lungs.
--- NOTE | ~2024-03-13 | CT_ITS ---
CT Facial Bones and Cervical Spine Clinical Indication: Syncope, injury Technique: Contiguous axial scans were obtained through the facial bones and cervical spine followed by coronal and sagittal reconstructions. Dose reduction technique was used on this scan by utilizing automated exposure control and iterative reconstruction technique. The dose-length product (DLP) was 102.56 mGy-cm. Findings: CT facial bones: No fractures are identified. The visualized paranasal sinuses are clear. Intraorbita l soft tissues appear normal. CT cervical spine: There is no acute fracture. There is grade 1 retrolisthesis of C5 over C6. There i s severe degenerative disc narrowing throughout the cervical spine. There is fusion of the facet join ts on the left side at C2-C3 and C3-C4. There is facet joint arthropathy in the remainder of the cerv ical spine otherwise. There is left neural foraminal narrowing at C3-C4. There is bilateral neural fo raminal narrowing at C4-C5. There is right neural foraminal narrowing at C5-C6. There is bilateral ne ural foraminal narrowing at C6-C7. Probable mild canal stenosis at C5-C6. No prevertebral soft tissue swelling. Impression: No fracture is seen in the facial bones. No fracture in the cervical spine. Grade 1 retrolisthesis of C5 over C6, likely chronic/degenerative. Additional degenerative spondylosis in the cervical spine, as above. Reviewed, dictated and finalized at [facility]. W BOSS Impression: No fracture is seen in the facial bones. No fracture in the cervical spine. Grade 1 retrolisthesis of C5 over C6, likely chronic/degenerative. Additional degenerative spondylosis in the cervical spine, as above.
--- NOTE | ~2024-03-13 | CT_ITS ---
Non-contrast Head CT History: Syncope COMPARISON: 04/10/2023 Technique: Axial non-contrast imaging of the brain was performed. Dose reduction technique was used on this scan by utilizing automated exposure control and iterative reconstruction technique. The dose -length product (DLP) was 605.33 mGy-cm. Findings: There is no evidence of intracranial hemorrhage, mass lesion, or acute infarct. Brain par enchyma appears normal. The ventricles and subarachnoid spaces are normal in size. The calvarium ap pears normal. The visualized paranasal sinuses and mastoid air cells are clear. Impression: No significant abnormality seen. Reviewed, dictated and finalized at [facility]. PRESIDENT INDUSTRIAL RELATIONS Impression: No significant abnormality seen.
--- OUTSIDE RECORDS SUMMARY | 2024-03-13 12:31 | XMS_ITS | Clinical Summary ---
Author Organization [facility] Address [address] [place] [address]. [place], [place] [id number] [place] [id number] Care Team Providers Care Bag Adjuster Name Role Phone Unavailable Primary Care Provider Unavailabl e Social History Tobacco Use Types Packs/Day Years Used Date Smoking Tobacco: Never Comments Unknown Sex and Gender Information Value Date Recorded Sex Assigned at Not on file Legal Sex Female 6:43 PM CDT Gender Identity Not on file Sexual Orientation Not on file Last Filed Vital Signs Vital Sign Reading Time Taken Comments Blood Pressure 115/54 12/01/2014 11:38 AM CDT Pulse 68 12/01/2014 11:38 AM CDT Temperature - - Respiratory Rate 18 12/01/2014 11:38 AM CDT Oxygen Saturation - - Inhaled Oxygen Concentration - - Weight 52.2 kg (115 lb) 12/01/2014 11:38 AM CDT Height 154.9 cm (5' 1 ) 12/01/2014 11:38 AM CDT Body Mass Index 21.73 12/01/2014 11:38 AM CDT Plan of Treatment Health Maintenance Due Date Last Done Comments DTaP, Tdap and Td Vaccines ( 1 - Tdap) 06/13/1954 Zoster Vaccines (1 of 2) 06/13/1985 Pneumococcal Vaccine: 65+ Ye ars (1 of 1 - PCV) 06/13/2000 RSV Immunization or 60+ Years (1 - 1-dose 75+ series) 06/13/2010 COVID-19 Vaccine ( - 2023-2 5 season) 2023 Influenza Adult (#1) 2023 Meningococcal B Vaccine Aged Out No l onger eligible based on patient's age to complete this topic Meningococcal Vaccine Aged Out No janice jermaine eligible based on patient's age to complete this topic RSV Immunizations Under 20 Months Aged Out No longer eligible based on patient's age to complete this topic
[2024-03-13 12:33] VITALS: BP 147/78; PULSE 68; RESP 16; TEMP 36.7; O2SAT 99
--- NOTE | 2024-03-13 12:44 | ED_ITS ---
HPI - Fall General Chief Complaint: Fall Stated Complaint: fall Source: patient and family Mode of arrival: ambulatory Limitations: no limitations History of Present Illness HPI Narrative: Patient is an 88-year-old female with a fall and syncope yesterday evening. She sustained a left periorbital redness and pain after the fall. She was unconscious for roughly 2 minutes. She had confusion after the event. She has no complaints today. She was on her way to the restroom to have nausea vomiting after over indulging with dinner. She has been losing weight and the primary doctor has increased her dietary intake. She also had to make a bowel movement when she went to the bathroom. Slight nasal discharge. No chest pain or shortness of breath but daughter is concerned about cardiac event. Patient has CHF. She has also had a cardiac events in the past. MD complaint: fall Onset (ago): day(s) (1) Fall from: standing Fall witnessed: no Place fall occurred: home Loss of consciousness: minutes (2) Length of LOC: minutes(s) (2) Prolonged down time: no Symptoms prior to fall: none Context: alcohol use and other ( Patient had some nausea and vomiting sensation and needed to have a bowel movement) Location of injury: face ( right periorbital region) Severity: mild Severity scale (1-10): 1 Quality: dull Associated symptoms (after fall): confusion ( post event but back to baseline today) Related Data Home Medications ?Medication ?Instructions ?Recorded ?Confirmed ?Last Taken ?Type pravastatin 40 mg tablet 40 mg PO HS 07/20/19 07/15/21 02/05/20 History amlodipine 5 mg tablet 5 mg PO DAILY 10/16/23 Unknown History fluorouracil 5 % topical cream 1 applic topical DAILY 10/16/23 Unknown History furosemide 20 mg tablet 20 mg PO DAILY 10/16/23 Unknown History potassium chloride 10 mEq 10 meq PO DAILY 10/16/23 Unknown History tablet,extended release Allergies Allergy/AdvReac Type Severity Reaction Status Date / Time lovastatin (From Altoprev) Allergy Unknown Unknown Verified 03/13/24 12:31 atropine AdvReac Mild EYE Verified 03/13/24 12:31 REDNESS, IRRITATION Review of Systems 2 Review of Systems: All systems reviewed & are unremarkable except as noted in HPI and below Constitutional: Constitutional: Reports no additional constitutional complaints Eyes: Eyes: Reports no additional eye complaints ENT: Reports system reviewed and no additional complaints, except as documented Cardiovascular: Cardiovascular: Reports no additional cardiovascular complaints Respiratory: Respiratory: Reports no additional respiratory complaints Gastrointestinal: Gastrointestinal: Reports no additional gastrointestinal complaints Genitourinary: Genitourinary: Reports no additional female genitourinary complaints Musculoskeletal: Musculoskeletal: Reports no additional musculoskeletal complaints Integumentary/Breasts: Skin/Breast: Reports system reviewed and no additional complaints, except as docu Neurologic: Reports system reviewed and no additional complaints, except as documented Psychiatric: Psychiatric: Reports no additional psychiatric complaints Endocrine: Endocrine: Reports no additional endocrine complaints Hematologic/Lymphatic: Hematologic/Lymphatic: Reports no additional hematologic/lymphatic complaints Allergic/Immunologic: Allergic/Immunologic: Reports no additional allergic/immunologic complaints PMFSH Past Medical History Medical History GERD (gastroesophageal reflux disease) History of heart attack 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 Mother Myocardial infarction Social History Social History Smoking status: Never smoker Alcohol intake: current Drinks per week: 6 Substance use: never Living arrangements: with family Additional living arrangements comments: DAUGHTER AND HER HUSB Spiritual care concerns: No Exam 2 Const: General: healthy appearing Nutritional Appearance: well nourished Orientation/consciousness: patient oriented x3 HENMT: Head: normal to inspection Ears: external ears normal F geni/Nose/Sinus: Normal external nose present Other: left periorbital and sub orbital region with ecchymosis and erythema without infection Eyes: Conjunctivae: conjunctivae normal Pupils: Equal, round and reactive pupils present EOM: EOMs intact bilaterally Neck: Neck: normal visual inspection Chest: Chest palpation & inspection: normal inspection of the chest Resp: Effort & Inspection: normal respiratory effort and not labored A uscultation: clear to auscultation bilaterally and no crackles Cardio: Rate: regular rate Rhythm: regular rhythm Heart sounds: no murmurs GI: Inspection: non-distended GI Palp: Yes Soft to palpation and No Tenderness to palpation present (GI) Auscultation: normal bowel sounds : General: Yes bladder normal to palpation Back/Spine/Pelvis: Back: no CVA tenderness Skin: General skin exam: normal color Rashes: no rashes Wounds: no wounds Neuro: General: patient oriented x3 Cranial nerves: Yes Nystagmus not present Speech: normal speech Other: NIH is 0, fast exam negative, GCS is 15 Extrem: General: normal to inspection Psych: Mental Status: mental status grossly normal Affect: normal affect Attitude: cooperative Course Vital Signs Vital signs: Vital Signs Temperature 36.7 C 03/13/24 12:33 Pulse Rate 68 03/13/24 12:33 Respiratory Rate 16 03/13/24 12:33 Blood Pressure 147/78 H 03/13/24 12:33 Pulse Oximetry 99 03/13/24 12:33 Oxygen Delivery Room Air 03/13/24 12:33 Temperature 36.7 C 03/13/24 12:33 Pulse Rate 68 03/13/24 12:33 Respiratory Rate 16 03/13/24 12:33 Blood Pressure 147/78 H 03/13/24 12:33 Pulse Oximetry 99 03/13/24 12:33 Oxygen Delivery Room Air 03/13/24 12:33 MDM - Fall MDM Narrative Medical decision making narrative: patient is an 80-year-old female with syncopal episode yesterday and a fall. We will do workup at this time to include CT scan and laboratory /EKG to rule out cardiac events. Lab Data Attestation: I reviewed the patient's lab results. 03/13/24 13:23 03/13/24 13:23 Labs: Lab Results 03/13/24 Range/Units 13:23 WBC 11.6 H (4.8-10.8) K/mm3 RBC 4.55 (4.20-5.40) M/mm3 Hgb 13.8 (11.7-13.8) g/dL Hct 42.4 H (35.0-42.0) % MCV 93.2 (78.0-102.0) fL MCH 30.3 (27.0-31.0) pg MCHC 32.5 (32-36) g/dL RDW 13.2 (11.6-14.4) % Plt Count 274 (150-420) K/mm3 MPV 10.0 (9.2-11.8) fl Immature Gran % (Auto) 0.4 H (0.0-0.0) % Neut % (Auto) 76.0 H (50.0-70.0) % Lymph % (Auto) 17.7 L (18.0-42.0) % [place] % (Auto) 4.7 (2.0-11.0) % Eos % (Auto) 0.9 L (1.0-6.0) % Baso % (Auto) 0.3 (0.0-1.0) % Lymph # (Auto) 2.05 (1.10-4.50) K/mm3 [place] # (Auto) 0.55 (0.10-0.90) K/mm3 Eos # (Auto) 0.11 (0.02-0.50) K/mm3 Baso # (Auto) 0.04 (0.00-0.10) K/mm3 Abs Immat Gran (auto) 0.05 H (0.00-0.00) K/mm3 Absolute Neuts (auto) 8.79 H (1.70-7.20) K/mm3 Absolute Nucleated RBC 0.00 (0.00-0.00) K/mm3 Nucleated RBC % 0.0 (0-0.0) % PT 9.7 (9.50-12.1) Seconds INR 0.9 APTT 24.2 (23.9-30.70) Sec Sodium 141 (136-145) mmol/L Potassium 3.3 L (3.5-5.1) mmol/L Chloride 103 (98-108) mmol/L Carbon Dioxide 25 (21-32) mmol/L Anion Gap 13 H (4-12) mmol/L BUN 20 H (7-18) mg/dL Creatinine 1.07 H (0.55-1.02) mg/dL Estim Creat Clear Calc Not Reportable Estimated GFR 48 L (59 - ) Glucose 92 (70-99) mg/dL Calculated Osmolality 294 (285-295) mOsm/kg Calcium 10.2 H (8.5-10.1) mg/dL Total Bilirubin 0.5 (0.00-1.00) mg/dL AST 24 (15-37) U/L ALT 32 (14-59) U/L Alkaline Phosphatase 63 (46-116) U/L Troponin I 6.6 (0.00-60.4) ng/L NT-Pro-B Natriuret Pep 842 H (0-450) pg/mL Total Protein 7.7 (6.4-8.2) g/dL Albumin 4.6 (3.4-5.0) g/dL Urine Color Yellow (Yellow) Urine Appearance Cloudy A (Clear) Urine pH 5.0 (5.0-8.0) Ur Specific [place] >= 1.030 H (1.010-1.020) Urine Protein Negative (Negative) Urine Glucose (UA) Negative (Negative) Urine Ketones 1+ H (Negative) Ur Blood (Man) Negative (Negative) Urine Nitrate Negative (Negative) Urine Bilirubin Negative (Negative) Urine Urobilinogen 0.2 (0.2-1.0) mg/dL Leukocyte Esterase Rfl 1+ H (Negative) VIVIEN/UL Urine RBC 0-2 (0-2) /hpf Urine WBC 10-15 H (0-3) /hpf Urine WBC Clumps Present H (None) /hpf Ur Squamous Epith Cells Few (Few) /hpf Amorphous Sediment Few H (None) Urine Bacteria 1+ H (None) /hpf Imaging Data Attestation: I personally reviewed and interpreted this imaging study as follows: Radiologist's impression: CT scan of the head and neck were negative for acute process CT scan of the facial bones was negative for acute process ECG Data EKG #1: Attestation: I personally reviewed and interpreted this ECG as follows: ECG completion date: 03/13/24 ECG completion time: 15:30 EKG Interpretation: normal rate, sinus rhythm, non-specific ST changes, normal QRS, normal QT and left axis Discharge Plan Discharge Clinical Impression: Syncope, vasovagal, Acute UTI Blunt trauma of face Qualifiers: Encounter type: initial encounter Qualified Code(s): S09.93XA - Unspecified injury of face, initial encounter Patient Disposition: Home, Self-Care Condition: Stable Instructions: Antibiotic Form, Syncope (DC), Urinary Tract Infection in Older Adults (ED) Patient Language: Danish Prescriptions: New cephalexin 500 mg capsule 500 mg PO BID 7 Days Qty: 14 0RF No Action pravastatin 40 mg tablet 40 mg PO HS amlodipine 5 mg tablet 5 mg PO DAILY fluorouracil 5 % cream 1 applic topical DAILY furosemide 20 mg tablet 20 mg PO DAILY potassium chloride 10 mEq tablet extended release 10 meq PO DAILY Follow-up/Referrals: Mahendra Perez MD [Primary Care Provider] - Time of Disposition: 15:23
--- NOTE | 2024-03-13 12:58 | ECG_ITS ---
Test Date: 2024-03-13 13:09:15 Measurements Intervals [place] Rate: 64 P: 53 GA: 167 QRS: -23 QRSD: 82 T: 41 QT: 394 QTc: 407 Interpretive Statements SINUS RHYTHM WITH MARKED SINUS ARRHYTHMIA BORDERLINE LEFT AXIS DEVIATION [QRS AXIS < -20] POSSIBLE RIGHT VENTRICULAR CONDUCTION DELAY [RSR (QR) IN V1/V2] No previous ECG available for comparison Electronically Signed On 03-13-2024 22:03:28 RAILWAYS ASSISTANT by Eddy Mahoney M.D.
--- OUTSIDE RECORDS SUMMARY | 2024-03-13 13:04 | XMS_ITS | Clinical Summary ---
Author Organization [facility] Address [address] [place] [address]. [place], [place] [id number] [place] [id number] Care Team Providers Care Newspaper Stuffer Name Role Phone Unavailable Primary Care Provider [...]
[2024-03-13 13:30] VITALS: BP 168/74; PULSE 65; RESP 20; O2SAT 94
[2024-03-13 13:31] LABS: Add Urine Microscopic? YES; Bilirubin Urine Negative (Negative); Blood Urine Negative (Negative); Color Urine Yellow (Yellow); Glucose Urine UA Negative (Negative); Ketones Urine 1+ (Negative); Leukocyte Esterase Ur 1+ LEU/UL (Negative); Nitrate Urine Negative (Negative); Protein Urine Negative (Negative); Specific Grav Ur >= 1.030 (1.010-1.020); Urobilinogen Urine 0.2 mg/dL (0.2-1.0)
[2024-03-13 13:32] LABS: Basophils Absolute Auto 0.04 K/mm3 (0.00-0.10); Basophils Percent Auto 0.3 % (0.0-1.0); Eosinophils Absolute Auto 0.11 K/mm3 (0.02-0.50); Eosinophils Percent Auto 0.9 % (1.0-6.0); Hematocrit 42.4 % (35.0-42.0); Hemoglobin 13.8 g/dL (11.7-13.8); Immature Granulocyte Absolute 0.05 K/mm3 (0.00-0.00); Immature Granulocyte Percent A 0.4 % (0.0-0.0); Lymphocytes Absolute Auto 2.05 K/mm3 (1.10-4.50); Lymphocytes Percent Auto 17.7 % (18.0-42.0); Mean Corpuscular HGB Conc 32.5 g/dL (32-36); Mean Corpuscular Hemoglobin 30.3 pg (27.0-31.0); Mean Corpuscular Volume 93.2 fL (78.0-102.0); Monocytes Absolute Auto 0.55 K/mm3 (0.10-0.90); Monocytes Percent Auto 4.7 % (2.0-11.0); Neutrophils Absolute Auto 8.79 K/mm3 (1.70-7.20); Platelet Count Result 274 K/mm3 (150-420); Red Blood Count 4.55 M/mm3 (4.20-5.40); Red Cell Distribution Width 13.2 % (11.6-14.4); White Blood Count 11.6 K/mm3 (4.8-10.8)
[2024-03-13 13:44] LABS: INR 0.9; Partial Thromboplastin Time 24.2 Sec (23.9-30.70); Prothrombin Time 9.7 Seconds (9.50-12.1)
[2024-03-13 13:51] LABS: Alanine Aminotransferase 32 U/L (14-59); Albumin Level 4.6 g/dL (3.4-5.0); Alkaline Phosphatase 63 U/L (46-116); Anion Gap 13 mmol/L (4-12); Aspartate Amino Transferase 24 U/L (15-37); Bilirubin,Total 0.5 mg/dL (0.00-1.00); Blood Urea Nitrogen 20 mg/dL (7-18); Calcium 10.2 mg/dL (8.5-10.1); Carbon Dioxide 25 mmol/L (21-32); Chloride 103 mmol/L (98-108); Estimated Glomerular Filt Rate 48; Glucose 92 mg/dL (70-99); NT Pro B Type Natriuretic Pept 842 pg/mL (0-450); Osmolality Calculated 294 mOsm/kg (285-295); Potassium 3.3 mmol/L (3.5-5.1); Sodium 141 mmol/L (136-145); Total Protein 7.7 g/dL (6.4-8.2); Troponin I 6.6 ng/L (0.00-60.4)
[2024-03-13 14:16] LABS: Appearance Urine Cloudy (Clear)
[2024-03-13 14:17] LABS: Amorphous Sediment Urine Few; Bacteria Urine 1+ /hpf; RBC Urine 0-2 /hpf (0-2); Squamous Epithelial Cell Urine Few /hpf (Few); WBC Clumps Urine Present /hpf
[2024-03-13] MEDS: POTASSIUM CHLORIDE 20 MEQ ER TABLET PO (15:27)
[2024-03-13] MEDS: CEPHALEXIN 500 MG CAPSULE PO (15:29)
[2024-03-13 15:35] VITALS: BP 168/59; PULSE 4; RESP 20; O2SAT 95
== END 2024-03-13 15:35 | disposition home or self-care (01) ==
PROVIDERS: Emergency Provider Emergency Medicine; PCP Internal Medicine
DX: N39.0 Urinary tract infection, site not specified (principal); S09.93XA Unspecified injury of face, initial encounter; R55 Syncope and collapse; I10 Essential (primary) hypertension; E78.5 Hyperlipidemia, unspecified; Z85.43 Personal history of malignant neoplasm of ovary; I25.2 Old myocardial infarction; W19.XXXA Unspecified fall, initial encounter
CPT/HCPCS: 36415; 70450; 70486; 71045; 72125; 80053; 81001; 83880; 84484; 85025; 85610; 85730; 87086; 93005; 99284; A9270

== ENCOUNTER 2024-03-14 10:05 | Outpatient (CLI) | payer MEDICARE, BC, SELFPAY ==
--- NOTE | ~2024-03-14 | CT_ITS ---
CLINICAL INDICATION: Personal history of uterine cancer, now with general weakness and weight loss COMPARISON: 07/15/2021. TECHNIQUE: Multiple contiguous axial images of the abdomen and pelvis were performed following the ad ministration of with 100 mL Omnipaque-350 intravenous contrast The dose-length product (DLP) was 208.04 mGy-cm. Automated exposure control and iterative reconstruction technique were employed. FINDINGS/OBSERVATIONS: Visualized lower thorax: The bilateral lung bases are clear. The heart is of normal size, without pericardial effusion. Small hiatal hernia is present. Liver: The liver enhances homogeneously and is not enlarged measuring 16 cm in longitudinal dimension. Gallbladder and biliary system: The gallbladder is distended with a large lamellated stone. Pancreas: The pancreas enhances homogeneously without ductal dilatation. Spleen: The spleen enhances homogeneously and is not enlarged measuring 6cm in longitudinal dimension. Kidneys: The bilateral kidneys enhance symmetrically without hydronephrosis or renal calculi. Adrenal glands: Unremarkable. Gastrointestinal tract: Fecal stasis within the colon. Appendix: The appendix is not definitively visualized. However, no pericecal inflammatory change is identified suggest the presence of acute appendicitis. Vasculature: Calcified atherosclerotic disease, without aneurysmal dilatation or dissection. Lymph nodes: No pathologically enlarged or morphologically suspicious lymph nodes within the retroperitoneum or at the root of the mesentery. Pelvic structures: The bladder is decompressed, and otherwise unremarkable. Limited evaluation of the deep pelvis secondary to streak artifact from the patient's left hip prosth etic. The uterus is surgically absent. Body wall and musculoskeletal: Degenerative disease within the lumbosacral spine, with osteophyte formation and disc space narrowing , endplate changes and vacuum phenomena. L1/L2 IMPRESSION: Cholelithiasis without cholecystitis. No acute pathology is detected. Reviewed, dictated and finalized at location A. MACY SCHEDULER
[2024-03-14 10:33] LABS: Hematocrit 41.7 % (35.0-42.0); Hemoglobin 13.7 g/dL (11.7-13.8); Mean Corpuscular HGB Conc 32.9 g/dL (32-36); Mean Corpuscular Hemoglobin 30.5 pg (27.0-31.0); Mean Corpuscular Volume 92.9 fL (78.0-102.0); Platelet Count Result 276 K/mm3 (150-420); Red Blood Count 4.49 M/mm3 (4.20-5.40); Red Cell Distribution Width 13.2 % (11.6-14.4); White Blood Count 9.2 K/mm3 (4.8-10.8)
[2024-03-14 10:49] LABS: Band Neutrophils Percent 1 % (0-6); Lymphocytes Absolute Manual 2.02 K/mm3 (1.1-4.5); Lymphocytes Percent Manual 22 % (18-44); Monocytes Absolute Manual 0.27 K/mm3 (0.1-0.90); Monocytes Percent Manual 3 % (3-9); Neutrophils Percent Manual 74 % (46-73); Platelet Estimate Adequate (Adequate); Total Cells Counted 100
[2024-03-14 11:02] LABS: Alanine Aminotransferase 31 U/L (14-59); Albumin Level 4.3 g/dL (3.4-5.0); Alkaline Phosphatase 64 U/L (46-116); Amylase 103 U/L (25-115); Anion Gap 12 mmol/L (4-12); Aspartate Amino Transferase 22 U/L (15-37); Bilirubin,Total 0.5 mg/dL (0.00-1.00); Blood Urea Nitrogen 18 mg/dL (7-18); Calcium 10.3 mg/dL (8.5-10.1); Carbon Dioxide 27 mmol/L (21-32); Chloride 104 mmol/L (98-108); Estimated Glomerular Filt Rate 48; Free T3 2.89 pg/mL (2.18-3.98); Free T4 Free Thyroxine 1.04 ng/dL (0.76-1.46); Glucose 103 mg/dL (70-99); Lipase 97 U/L (16-77); Magnesium 2.1 mg/dL (1.8-2.4); NT Pro B Type Natriuretic Pept 697 pg/mL (0-450); Osmolality Calculated 297 mOsm/kg (285-295); Potassium 4.2 mmol/L (3.5-5.1); Sodium 143 mmol/L (136-145); Thyroid Stimulating Hormone 3.59 uIU/mL (0.36-3.74); Total Protein 7.3 g/dL (6.4-8.2)
--- OUTSIDE RECORDS SUMMARY | 2024-03-14 11:02 | XMS_ITS | Clinical Summary ---
Author Organization [facility] Address [address] [place] [address]. [place], [place] [id number] [place] [id number] Care Team Providers Care Glass Cutter Name Role Phone Unavailable Primary Care Provider [...]
== END 2024-03-14 10:06 | disposition home or self-care (01) ==
PROVIDERS: PCP Internal Medicine; Visit Provider Internal Medicine
DX: R10.9 Unspecified abdominal pain (principal); R19.7 Diarrhea, unspecified; I50.9 Heart failure, unspecified; I49.9 Cardiac arrhythmia, unspecified; R11.0 Nausea; K80.20 Calculus of gallbladder without cholecystitis without obstruction
CPT/HCPCS: 36415; 74177; 80053; 82150; 83690; 83735; 83880; 84439; 84443; 84481; 85025; Q9967

== ENCOUNTER 2024-03-17 14:03 | Emergency (ER) | payer MEDICARE, BC, SELFPAY ==
[2024-03-17 14:03] VITALS: BP 168/62; PULSE 85; RESP 20; TEMP 36.7; O2SAT 96
--- NOTE | 2024-03-17 14:20 | ED.AMS ---
HPI - Altered Mental Status General Stated Complaint: confusion Source: patient and family Mode of arrival: ambulatory Limitations: no limitations History of Present Illness HPI narrative: This is a an 88-year-old female that was sent over since she had altered mental status briefly currently the patient is back to her baseline, did have a fall a few days ago air was assessed with a CT scan and CT of facial bones which showed no acute abnormalities. Patient was talking to her daughter and had absent spell/altered mental status. Patient was diagnosed with a urinary tract infection currently is on antibiotics. Currently the patient is back to her baseline with no fever chills no headache no blurry vision no nausea vomiting no chest pain no neurological deficits. MD complaint: altered mental status Timing confirmed by: family member Severity: mild Related Data Home Medications ?Medication ?Instructions ?Recorded ?Confirmed ?Last Taken ?Type pravastatin 40 mg tablet 40 mg PO HS 07/20/19 07/15/21 02/05/20 History amlodipine 5 mg tablet 5 mg PO DAILY 10/16/23 Unknown History fluorouracil 5 % topical cream 1 applic topical DAILY 10/16/23 Unknown History furosemide 20 mg tablet 20 mg PO DAILY 10/16/23 Unknown History potassium chloride 10 mEq 10 meq PO DAILY 10/16/23 Unknown History tablet,extended release Allergies Allergy/AdvReac Type Severity Reaction Status Date / Time lovastatin (From [employer]) Allergy Unknown Unknown Verified 03/13/24 12:31 atropine AdvReac Mild EYE Verified 03/13/24 12:31 REDNESS, IRRITATION Review of Systems Review of Systems: All systems reviewed & are unremarkable except as noted in HPI and below PMFSH Past Medical History Medical History GERD (gastroesophageal reflux disease) History of heart attack 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 Mother Myocardial infarction Social History Social History Smoking status: Never smoker Alcohol intake: current Drinks per week: 6 Substance use: never Living arrangements: with family Additional living arrangements comments: DAUGHTER AND HER HUSB Spiritual care concerns: No Exam Const: General: healthy appearing, no acute distress and alert Nutritional Appearance: well nourished Orientation/consciousness: patient oriented x3 Limitations: no limitations Eyes: Conjunctivae: conjunctivae normal Neck: Neck: normal visual inspection and no lymphadenopathy Chest: Chest palpation & inspection: normal inspection of the chest Resp: Effort & Inspection: normal respiratory effort Auscultation: clear to auscultation bilaterally Cardio: Rate: regular rate Rhythm: regular rhythm GI: GI Palp: Yes Soft to palpation Auscultation: normal bowel sounds Urinary Catheter: Urinary Catheter: patent and draining Back/Spine/Pelvis: Back: no CVA tenderness Skin: General skin exam: normal color Rashes: no rashes Wounds: no wounds Neuro: General: patient oriented x3, moves all extremities, no meningeal signs and no focal motor deficits Extrem: General: normal to inspection and no clubbing, cyanosis or edema Course Course Emergency Course: after assessment patient has no neurological deficits advised continue her antibiotics for urinary tract infection and to follow with her primary as scheduled. Vital Signs Vital signs: Vital Signs Temperature 36.7 C 03/17/24 14:03 Pulse Rate 85 03/17/24 14:03 Respiratory Rate 20 03/17/24 14:03 Blood Pressure 168/62 H 03/17/24 14:03 Pulse Oximetry 96 03/17/24 14:03 Oxygen Delivery Room Air 03/17/24 14:03 Temperature 36.7 C 03/17/24 14:03 Pulse Rate 85 03/17/24 14:03 Respiratory Rate 20 03/17/24 14:03 Blood Pressure 168/62 H 03/17/24 14:03 Pulse Oximetry 96 03/17/24 14:03 Oxygen Delivery Room Air 03/17/24 14:03 Critical Care Time Critical Care Time Critical Care Time: No Discharge Plan Discharge Clinical Impression: Urinary tract infection Qualifiers: Urinary tract infection type: site unspecified Hematuria presence: without hematuria Qualified Code(s): N39.0 - Urinary tract infection, site not specified Head injury Qualifiers: Encounter type: initial encounter Qualified Code(s): S09.90XA - Unspecified injury of head, initial encounter Patient Disposition: Home, Self-Care Condition: Stable Instructions: Antibiotic Form, Urinary Tract Infection in Women (ED), Head Injury (ED) Patient Language: Hebrew Prescriptions: No Action pravastatin 40 mg tablet 40 mg PO HS cephalexin 500 mg capsule 500 mg PO BID 7 Days Qty: 14 0RF amlodipine 5 mg tablet 5 mg PO DAILY fluorouracil 5 % cream 1 applic topical DAILY furosemide 20 mg tablet 20 mg PO DAILY potassium chloride 10 mEq tablet extended release 10 meq PO DAILY Follow-up/Referrals: Mahendra Perez MD [Primary Care Provider] - Time of Disposition: 14:28
--- OUTSIDE RECORDS SUMMARY | 2024-03-17 14:49 | XMS_ITS | Clinical Summary ---
Author Organization [facility] Address [address] [place] [address]. [place], [place] [id number] [place] [id number] Care Team Providers Care Outpatient Coder Name Role Phone Unavailable Primary Care Provider [...]
== END 2024-03-17 14:50 | disposition home or self-care (01) ==
PROVIDERS: Emergency Provider Emergency Medicine; PCP Internal Medicine
DX: N39.0 Urinary tract infection, site not specified (principal); S09.90XA Unspecified injury of head, initial encounter; I10 Essential (primary) hypertension; E78.5 Hyperlipidemia, unspecified; I25.2 Old myocardial infarction; K21.9 Gastro-esophageal reflux disease without esophagitis; Z85.43 Personal history of malignant neoplasm of ovary; W19.XXXA Unspecified fall, initial encounter
CPT/HCPCS: 99281

== ENCOUNTER 2024-03-19 10:32 | Outpatient (CLI) | payer MEDICARE, BC, SELFPAY ==
--- NOTE | ~2024-03-19 | MR_ITS ---
EXAMINATION: MR brain/brain stem wo con DATE: 03/19/2024 11:14 INDICATION: Confusion. TECHNIQUE: Magnetic resonance imaging (MRI) of the brain and brainstem was performed without intraven ous contrast. COMPARISON: Head CT 03/13/2024 FINDINGS: There are scattered areas of nonspecific increased T2-weighted signal intensity in the cere bral white matter, which is within normal limits for the patient's age. There is no intracranial hemo rrhage, acute infarction, or abnormal intracranial mass lesion. The ventricles are normal in size. Th ere is mild mucosal thickening in left maxillary sinus. There are likely changes of ocular lens repla cement surgeries. There is a trace left mastoid effusion. IMPRESSION: 1. Normal aging brain. Reviewed, dictated and finalized at location A. CRIPTION EYEGLASS MAKER IMPRESSION: 1. Normal aging brain.
== END 2024-03-19 10:33 | disposition home or self-care (01) ==
LOC: CHSIMG 10:34
PROVIDERS: PCP Internal Medicine; Visit Provider Internal Medicine
DX: G45.9 Transient cerebral ischemic attack, unspecified (principal)
CPT/HCPCS: 70551

== ENCOUNTER 2024-03-21 09:58 | Outpatient (CLI) | payer MEDICARE, BC, SELFPAY ==
--- NOTE | 2024-04-13 13:07 | WPDHOLTEREM ---
Holter/Event Monitor Holter/Event Monitor Date of procedure: 03/21/24 Holter/Event Procedure: Event Monitor Indications: Palpitations Conclusion: 1. 14 days event monitor on 03/21/24. 2. Predominant rhythm is sinus rhythm. HR range 42-179 bpm; average HR 74 bpm. HR at 42 bpm as on 03/25/24 at 2:13 am. 3. There are frequent premature supraventricular complexes with total burden of 16%, occasional supraventricular couplets, and occasional supraventricular triplets. There are 434 episodes of supraventricular tachycardia, fastest at 179 bpm and longest lasting 16 seconds. 4. There are rare premature ventricular complexes and longest ventricular trigeminy episode was 17 seconds. No ventricular tachycardia. 5. No significant pauses greater than 3 seconds. 6. No symptoms available for correlation.
== END 2024-03-21 09:59 | disposition home or self-care (01) ==
LOC: CHSCARD 09:58
PROVIDERS: PCP Internal Medicine; Visit Provider Internal Medicine
DX: G45.9 Transient cerebral ischemic attack, unspecified (principal); I49.9 Cardiac arrhythmia, unspecified
CPT/HCPCS: 93246

== ENCOUNTER 2024-04-26 09:50 | Outpatient (CLI) | payer MEDICARE, SELFPAY ==
[2024-04-26 10:46] LABS: Alanine Aminotransferase 22 U/L (14-59); Albumin Level 4.1 g/dL (3.4-5.0); Alkaline Phosphatase 66 U/L (46-116); Amylase 102 U/L (25-115); Anion Gap 10 mmol/L (4-12); Aspartate Amino Transferase 21 U/L (15-37); Bilirubin,Total 0.3 mg/dL (0.00-1.00); Blood Urea Nitrogen 27 mg/dL (7-18); Calcium 10.4 mg/dL (8.5-10.1); Carbon Dioxide 26 mmol/L (21-32); Chloride 105 mmol/L (98-108); Estimated Glomerular Filt Rate 59; Glucose 100 mg/dL (70-99); Lipase 85 U/L (16-77); Osmolality Calculated 297 mOsm/kg (285-295); Potassium 4.9 mmol/L (3.5-5.1); Sodium 141 mmol/L (136-145); Total Protein 6.9 g/dL (6.4-8.2)
--- OUTSIDE RECORDS SUMMARY | 2024-04-26 10:59 | XMS_ITS | Clinical Summary ---
Author Organization [facility] Address [address] [place] [id number] Care Team Providers Care Secretary Of State Name Role Phone Unavailable Primary Care Provider [...]
== END 2024-04-26 09:51 | disposition home or self-care (01) ==
LOC: CHSLAB 09:52
PROVIDERS: PCP Internal Medicine; Visit Provider Internal Medicine
DX: K85.90 Acute pancreatitis without necrosis or infection, unspecified (principal)
CPT/HCPCS: 36415; 80053; 82150; 83690

== ENCOUNTER 2024-07-17 16:58 | Emergency (ER) | payer MEDICARE, BC, SELFPAY ==
--- NOTE | ~2024-07-17 | XR_ITS ---
EXAMINATION: XR chest 1V portable Exam Date/Time: 07/17/2024 18:30 CDT HISTORY: Arrythmia Comparison: 03/13/2024. RESULT: Lines, tubes, and devices: None. Lungs and pleura: Chronic mild peripheral and basilar interstitial change and scarring. Cardiomediastinal silhouette: Stable. Granulomatous/mitral calcification. Other: No acute osseous or upper abdominal finding. IMPRESSION: No acute cardiopulmonary process. Reviewed, dictated and finalized at location K.
[2024-07-17 17:19] VITALS: BP 187/62; PULSE 80; RESP 16; TEMP 36.6; O2SAT 99
--- NOTE | 2024-07-17 17:25 | ECG_ITS ---
Test Date: 2024-07-17 17:32:28 Measurements Intervals [place] Rate: 66 P: 66 [place]: 191 QRS: -10 QRSD: 89 T: 29 QT: 412 QTc: 432 Interpretive Statements SINUS RHYTHM WITH SINUS ARRHYTHMIA CONSIDER RIGHT VENTRICULAR CONDUCTION DELAY DELAYED PRECORDIAL R/S TRANSITION CONSIDER INFERIOR INFARCT, AGE INDETERMINATE BORDERLINE T WAVE ABNORMALITY- ANTERIOR LEADS BASELINE ARTIFACT- I, II, III, AVR, AVL, AVF, V1-V6 ABNORMAL ECG Compared to ECG 03/13/2024 13:09:15 No significant changes Electronically Signed On 07-17-2024 19:29:12 CDT by Sonido Jimenez D.O.
[2024-07-17 17:45] VITALS: PULSE 64
[2024-07-17 18:11] LABS: Basophils Percent Auto 0.5 % (0.2-1.2); Eosinophils Percent Auto 0.3 % (0-4.4); Hematocrit 37.8 % (37.0-47.0); Hemoglobin 12.3 g/dL (12.0-15.0); Immature Granulocyte Absolute 0.02 K/mm3 (0.00-0.031); Immature Granulocyte Percent A 0.3 % (0-0.5); Lymphocytes Absolute Auto 1.23 K/mm3 (0.9-3.2); Lymphocytes Percent Auto 19.3 % (18.3-44.2); Mean Corpuscular HGB Conc 32.5 g/dl (32-36); Mean Corpuscular Hemoglobin 30.1 pg (26-34); Mean Corpuscular Volume 92.6 fl (80-100); Mean Platelet Volume 11.7 fl (7.4-10.4); Monocytes Absolute Auto 0.4 K/mm3 (0.1-0.6); Monocytes Percent Auto 6.8 % (2.6-8.5); Neutrophils Absolute Auto 4.6 K/mm3 (1.3-6.7); Neutrophils Percent Auto 72.8 % (45.5-73.1); Platelet Count Result 207 k/mm3 (150-375); Red Blood Count 4.08 M/mm3 (4.2-5.4); Red Cell Distribution Width 13.3 % (11.5-14.5); White Blood Count 6.4 K/mm3 (4.5-10.0)
[2024-07-17 18:23] LABS: INR 0.9; Prothrombin Time 11.9 Seconds (11.1-14.7)
[2024-07-17 18:24] LABS: Partial Thromboplastin Time 24.8 Seconds (22.3-36.8)
[2024-07-17 18:28] LABS: Alanine Aminotransferase 22 U/L (6-35); Albumin Level 4.5 g/dL (3.5-5.1); Alkaline Phosphatase 53 U/L (38-126); Anion Gap 9 mmol/L (4-12); Aspartate Amino Transferase 40 U/L (14-36); Bilirubin,Total 0.4 mg/dL (0.2-1.3); Blood Urea Nitrogen 24 mg/dL (7-17); Calcium 9.9 mg/dL (8.4-10.2); Carbon Dioxide 25 mmol/L (22-30); Chloride 105 mmol/L (98-107); Estimated CRCL calculation 27 ml/min; Estimated Glomerular Filt Rate 57; Glucose 112 mg/dL (65-110); Lipase 256 U/L (23-300); Potassium 3.6 mmol/L (3.4-5.0); Sodium 139 mmol/L (137-145)
[2024-07-17 18:38] LABS: Troponin I < 0.012 ng/mL (0.000-0.034)
[2024-07-17 18:46] LABS: Magnesium 2.1 mg/dL (1.6-2.3)
--- NOTE | 2024-07-17 19:03 | ED.GENADULT ---
HPI - General Adult General Chief complaint: Arrhythmia/Palpitations Stated complaint: Heart rate high when working in garden, High BP Time Seen by Provider: 07/17/24 18:19 History of Present Illness HPI narrative: Patient 89-year-old female presents emergency department chief complaint palpitations. Patient reports he was outside working in the garden and noticed her heart started pounding fast. Patient states her heart rate got up to 120 reports when EMS was called heart rate came down and is currently back to her normal status the patient reports that she has had dysrhythmias before and had multiple supraventricular rhythms on a Holter monitor and was started on metoprolol by her chain machine operator Related Data Home Medications ?Medication ?Instructions ?Recorded ?Confirmed ?Last Taken ?Type pravastatin 40 mg tablet 40 mg PO HS 07/20/19 06/13/24 02/05/20 History amlodipine 5 mg tablet 5 mg PO DAILY 10/16/23 06/13/24 Unknown History aspirin 81 mg capsule 81 mg PO DAILY 06/13/24 06/13/24 Unknown History Allergies Allergy/AdvReac Type Severity Reaction Status Date / Time lovastatin (From Altoprev) Allergy Unknown Unknown Verified 03/13/24 12:31 atropine AdvReac Mild EYE Verified 03/13/24 12:31 REDNESS, IRRITATION Review of Systems Review of Systems: A 10 system review of systems was completed on the patient and is negative except for what is stated in the HPI. Nursing and ancillary documentation was reviewed. FORMERLY [facility], [facility] Past Medical History Medical History GERD (gastroesophageal reflux disease) History of heart attack stress CA - no treatment Hypertension Hyperlipidemia Ovary cancer Surgical History Surgical History History of hip surgery History of hysterectomy Family History Family History Father No problems noted. Mother Myocardial infarction Social History Social History Smoking status: Never smoker Alcohol intake: current Drinks per week: 6 Substance use: never Living arrangements: with family Additional living arrangements comments: DAUGHTER AND HER HUSB Spiritual care concerns: No Exam Narrative: GENERAL: Well-appearing, well-nourished, and in no acute distress. HEAD: Normocephalic, atraumatic. EYES: PERRLA and EOMI. ENT: Nares clear, no rhinorrhea or epistaxis. Mucous membranes moist. NECK: Supple. CHEST: Clear to auscultation. No respiratory distress. HEART: Regular rate and rhythm. No murmur heard. Normal peripheral pulses. ABDOMEN: Soft, nontender, nondistended, normal active bowel sounds. EXTREMITIES: Normal range of motion. No edema. SKIN: Warm, dry, no rash. NEURO: No focal deficits. Alert and oriented x3. PSYCH: Normal mood and affect. Course Vital Signs Vital signs: Vital Signs Temperature 36.6 C 07/17/24 17:19 Pulse Rate 80 07/17/24 17:19 Respiratory Rate 16 07/17/24 17:19 Blood Pressure 187/62 H 07/17/24 17:19 Pulse Oximetry 99 07/17/24 17:19 Oxygen Delivery Room Air 07/17/24 17:19 Temperature 36.6 C 07/17/24 17:19 Pulse Rate 64 07/17/24 17:45 Respiratory Rate 16 07/17/24 17:19 Blood Pressure 187/62 H 07/17/24 17:19 Pulse Oximetry 99 07/17/24 17:19 Oxygen Delivery Room Air 07/17/24 17:19 Medical Decision Making MDM Narrative Medical decision making narrative: Differential diagnosis includes SVT, AFib, electrolyte abnormality, dehydration, Laboratory studies were obtained on the patient showed a normal CBC CMP showed no significant abnormalities magnesium was 2.1 initial troponin is negative EKG showed sinus rhythm with sinus arrhythmia Patient is currently asymptomatic Vital Signs Vital Signs: Vital Signs Temperature 36.6 C 07/17/24 17:19 Pulse Rate 80 07/17/24 17:19 Respiratory Rate 16 07/17/24 17:19 Blood Pressure 187/62 H 07/17/24 17:19 Pulse Oximetry 99 07/17/24 17:19 Oxygen Delivery Room Air 07/17/24 17:19 Temperature 36.6 C 07/17/24 17:19 Pulse Rate 64 07/17/24 17:45 Respiratory Rate 16 07/17/24 17:19 Blood Pressure 187/62 H 07/17/24 17:19 Pulse Oximetry 99 07/17/24 17:19 Oxygen Delivery Room Air 07/17/24 17:19 Lab Data 07/17/24 18:04 07/17/24 18:04 Labs: Lab Results 07/17/24 07/17/24 Range/Units 18:03 18:04 WBC 6.4 (4.5-10.0) K/mm3 RBC 4.08 L (4.2-5.4) M/mm3 Hgb 12.3 (12.0-15.0) g/dL Hct 37.8 (37.0-47.0) % MCV 92.6 (80-100) fl MCH 30.1 (26-34) pg MCHC 32.5 (32-36) g/dl RDW 13.3 (11.5-14.5) % Plt Count 207 (150-375) k/mm3 MPV 11.7 H (7.4-10.4) fl Immature Gran % (Auto) 0.3 (0-0.5) % Neut % (Auto) 72.8 (45.5-73.1) % Lymph % (Auto) 19.3 (18.3-44.2) % [place] % (Auto) 6.8 (2.6-8.5) % Eos % (Auto) 0.3 (0-4.4) % Baso % (Auto) 0.5 (0.2-1.2) % Lymph # (Auto) 1.23 (0.9-3.2) K/mm3 [place] # (Auto) 0.4 (0.1-0.6) K/mm3 Eos # (Auto) 0.0 (0-0.3) K/mm3 Baso # (Auto) 0.0 (0.0-0.1) K/mm3 Abs Immat Gran (auto) 0.02 (0.00-0.031) K/mm3 Absolute Neuts (auto) 4.6 (1.3-6.7) K/mm3 Absolute Nucleated RBC 0.000 (0.0-0.012) K/mm3 Nucleated RBC % 0.0 (0.0-0.2) % PT 11.9 (11.1-14.7) Seconds INR 0.9 APTT 24.8 (22.3-36.8) Seconds Sodium 139 (137-145) mmol/L Potassium 3.6 (3.4-5.0) mmol/L Chloride 105 (98-107) mmol/L Carbon Dioxide 25 (22-30) mmol/L Anion Gap 9 (4-12) mmol/L BUN 24 H (7-17) mg/dL Creatinine 0.92 (0.7-1.0) mg/dL Estim Creat Clear Calc 27 ml/min Estimated GFR 57 L (59 - ) Glucose 112 H (65-110) mg/dL Calcium 9.9 (8.4-10.2) mg/dL Magnesium 2.1 (1.6-2.3) mg/dL Total Bilirubin 0.4 (0.2-1.3) mg/dL AST 40 H (14-36) U/L ALT 22 (6-35) U/L Alkaline Phosphatase 53 (38-126) U/L Troponin I < 0.012 (0.000-0.034) ng/mL Total Protein 7.0 (6.3-8.2) g/dL Albumin 4.5 (3.5-5.1) g/dL Lipase 256 (23-300) U/L Discharge Plan Discharge Clinical Impression: Palpitations Patient Disposition: Home Condition: Stable Instructions: Antibiotic Form, Heart Palpitations (ED) Additional Instructions: Please follow-up with your chain machine operator. If you have worsening symptoms please return to the emergency department for re-evaluation Patient Language: Azeri Prescriptions: No Action pravastatin 40 mg tablet 40 mg PO HS aspirin 81 mg capsule 81 mg PO DAILY metoprolol succinate 25 mg tablet extended release 24 hr 25 mg PO DAILY Qty: 30 5RF amlodipine 5 mg tablet 5 mg PO DAILY Follow-up/Referrals: Sonido Jimenez DO [Physician] - Mahendra Perez MD [Primary Care Provider] - Time of Disposition: 19:19
== END 2024-07-17 19:36 | disposition home or self-care (01) ==
PROVIDERS: Emergency Medicine; Emergency Provider Emergency Medicine; PCP Internal Medicine
DX: R00.2 Palpitations (principal); K21.9 Gastro-esophageal reflux disease without esophagitis; I10 Essential (primary) hypertension; E78.5 Hyperlipidemia, unspecified; Z85.43 Personal history of malignant neoplasm of ovary
CPT/HCPCS: 36415; 71045; 80053; 83690; 83735; 84484; 85025; 85610; 85730; 93005; 99284

== ENCOUNTER 2024-08-15 07:54 | Outpatient (CLI) | payer MEDICARE, BC, SELFPAY ==
[2024-08-15 08:22] LABS: Basophils Absolute Auto 0.04 K/mm3 (0.00-0.10); Basophils Percent Auto 0.6 % (0.0-1.0); Eosinophils Absolute Auto 0.02 K/mm3 (0.02-0.50); Eosinophils Percent Auto 0.3 % (1.0-6.0); Hematocrit 40.3 % (35.0-42.0); Immature Granulocyte Absolute 0.02 K/mm3 (0.00-0.00); Immature Granulocyte Percent A 0.3 % (0.0-0.0); Lymphocytes Absolute Auto 1.63 K/mm3 (1.10-4.50); Lymphocytes Percent Auto 23.6 % (18.0-42.0); Mean Corpuscular HGB Conc 32.3 g/dL (32-36); Mean Corpuscular Hemoglobin 29.8 pg (27.0-31.0); Mean Corpuscular Volume 92.4 fL (78.0-102.0); Mean Platelet Volume 10.2 fl (9.2-11.8); Monocytes Absolute Auto 0.34 K/mm3 (0.10-0.90); Monocytes Percent Auto 4.9 % (2.0-11.0); Neutrophils Absolute Auto 4.87 K/mm3 (1.70-7.20); Neutrophils Percent Auto 70.3 % (50.0-70.0); Platelet Count Result 245 K/mm3 (150-420); Red Blood Count 4.36 M/mm3 (4.20-5.40); Red Cell Distribution Width 13.4 % (11.6-14.4); White Blood Count 6.9 K/mm3 (4.8-10.8)
[2024-08-15 08:41] LABS: Add Urine Microscopic? YES; Appearance Urine Clear (Clear); Bilirubin Urine Negative (Negative); Blood Urine Negative (Negative); Color Urine Yellow (Yellow); Glucose Urine UA Negative (Negative); Ketones Urine Trace (Negative); Leukocyte Esterase Ur 1+ LEU/UL (Negative); Nitrate Urine Negative (Negative); Protein Urine Negative (Negative); Urobilinogen Urine 0.2 mg/dL (0.2-1.0); pH Urine 5.5 (5.0-8.0)
[2024-08-15 08:46] LABS: RBC Urine None seen /hpf (0-2); WBC Urine 0-3 /hpf (0-3)
[2024-08-15 08:47] LABS: Bacteria Urine Rare /hpf; Squamous Epithelial Cell Urine Occasional /hpf (Few)
[2024-08-15 09:10] LABS: Alanine Aminotransferase 20 U/L (6-35); Albumin Level 4.4 g/dL (3.5-5.1); Alkaline Phosphatase 59 U/L (38-126); Anion Gap 4 mmol/L (4-12); Aspartate Amino Transferase 36 U/L (14-36); Bilirubin,Total 0.6 mg/dL (0.2-1.3); Blood Urea Nitrogen 21 mg/dL (7-17); Calcium 9.9 mg/dL (8.4-10.2); Carbon Dioxide 25 mmol/L (22-30); Chloride 109 mmol/L (98-107); Cholesterol 177 mg/dL (0-200); Creatine Kinase 77 U/L (30-135); Estimated Glomerular Filt Rate 53; Glucose 95 mg/dL (65-110); HDL Direct 78 mg/dL; LDL Cholesterol Calculated 82 mg/dL (<130); Osmolality Calculated 289 mOsm/kg (285-295); Potassium 4.5 mmol/L (3.4-5.0); Sodium 138 mmol/L (137-145); Total Protein 6.6 g/dL (6.3-8.2); Triglycerides 86 mg/dL (<150)
[2024-08-15 09:18] LABS: NT Pro B Type Natriuretic Pept 756 pg/mL (19.9-100)
[2024-08-15 10:09] LABS: Hemoglobin A1C 5.5 % (<5.7)
== END 2024-08-15 07:55 | disposition home or self-care (01) ==
PROVIDERS: PCP Internal Medicine; Visit Provider Internal Medicine
DX: N39.0 Urinary tract infection, site not specified (principal); E78.2 Mixed hyperlipidemia; R73.01 Impaired fasting glucose; E79.0 Hyperuricemia without signs of inflammatory arthritis and tophaceous disease; E55.9 Vitamin D deficiency, unspecified; I11.0 Hypertensive heart disease with heart failure
CPT/HCPCS: 36415; 80053; 80061; 81001; 82550; 83036; 83880; 84550; 85025; 87086; 87088

== ENCOUNTER 2024-11-17 12:17 | Emergency (ER) | payer MEDICARE, BC, SELFPAY ==
[2024-11-17] VITALS (10 sets, daily range): BP systolic 115–169; BP diastolic 47–110; PULSE 86; RESP 16–20; TEMP 36.6; O2SAT 9–100
--- NOTE | ~2024-11-17 | CT_ITS ---
CT HEAD NON-CONTRAST Clinical History: confusion Comparison: Brain MRI 03/19/2024 Technique: Unenhanced axial images skull base to vertex Coronal, sagittal reformats CT images acquired with automatic exposure control for dose reduction DLP: 530 mGy-cm Findings: Global atrophy. Chronic white matter microvascular ischemic changes. Sulci, ventricles: Unremarkable. No intracerebral hemorrhage. No evidence acute territorial infarct. No mass effect, midline shift. Bony calvarium intact. Visualized paranasal sinuses: Clear. Mastoid air cells: Clear. IMPRESSION: 1. No acute intracranial findings. Reviewed, dictated and finalized at location R.
--- OUTSIDE RECORDS SUMMARY | 2024-11-17 12:19 | XMS_ITS | Clinical Summary ---
Author Organization [facility] Address [address] [place] [id number] Care Team Providers Care Hair Preparer Name Role Phone Unavailable Primary Care Provider [...] 11:38 AM CDT Height 154.9 cm (5' 1) 12/01/2014 11:38 AM CDT Body Mass Index 21.73 12/01/2014 11:38 AM CDT Plan of Treatment Health Maintenance Due Date Last Done Comments DTaP, Tdap and Td Vaccines ( 1 - Tdap) 06/13/1954 Pneumococcal Vaccine: 50+ Ye ars (1 of 1 - PCV) 06/13/1985 Zoster Vaccines (1 of 2) 06/13/1985 RSV Immunization or 60+ Years (1 - 1-dose 75+ series) 06/13/2010 COVID-19 Vaccine ( - 2023-2 5 season) 2024 Meningococcal B Vaccine Aged Out No l onger eligible based on patient's age to complete this topic Meningococcal Vaccine Aged Out No janice jermaine eligible based on patient's age to complete this topic RSV Immunizations Under 20 Months Aged Out No longer eligible based on patient's age to complete this topic
[2024-11-17 13:21] LABS: Add Urine Microscopic? NO; Appearance Urine Clear (Clear); Glucose Urine UA Negative (Negative); Leukocyte Esterase Ur Negative LEU/UL (Negative); Nitrate Urine Negative (Negative); Specific Grav Ur <= 1.005 (1.010-1.020)
--- OUTSIDE RECORDS SUMMARY | 2024-11-17 13:24 | XMS_ITS | Clinical Summary ---
Author Organization [facility] Address [address] [place] [id number] Care Team Providers Care Trans Router Name Role Phone Unavailable Primary Care Provider [...]
--- NOTE | 2024-11-17 13:39 | ED.AMS ---
HPI - Altered Mental Status General Chief Complaint: Altered Mental Status Stated Complaint: stroke like symptoms Time Seen by Provider: 11/17/24 12:25 Source: patient and family Mode of arrival: wheelchair Limitations: physical limitation History of Present Illness HPI narrative: this is a an 89-year-old female DNR presents from home with her daughter with an episode of confusion currently during evaluation back to her baseline patient states that she is not having any fever chills no dysuria no flank pain no abdominal pain no chest pain or shortness of breath no fever or chills no diarrhea constipation. Patient with history of hyperlipidemia and hypertension and history of TIAs. complaint: confusion Onset (ago): hour(s) Timing confirmed by: family member Severity: similar to previous episodes Related Data Home Medications ?Medication ?Instructions ?Recorded ?Confirmed ?Last Taken ?Type pravastatin 40 mg tablet 40 mg PO HS 07/20/19 06/13/24 02/05/20 History amlodipine 5 mg tablet 5 mg PO DAILY 10/16/23 06/13/24 Unknown History aspirin 81 mg capsule 81 mg PO DAILY 06/13/24 06/13/24 Unknown History Allergies Allergy/AdvReac Type Severity Reaction Status Date / Time lovastatin (From Altoprev) Allergy Unknown Unknown Verified 11/17/24 12:34 atropine AdvReac Mild EYE Verified 11/17/24 12:34 REDNESS, IRRITATION Review of Systems Review of Systems: All systems reviewed & are unremarkable except as noted in HPI and below PMFSH Past Medical History Medical History GERD (gastroesophageal reflux disease) History of heart attack stress MS - no treatment Hypertension Hyperlipidemia Ovary cancer Surgical History Surgical History History of hip surgery History of hysterectomy Family History Family History Father No problems noted. Mother Myocardial infarction Social History Social History Smoking status: Never smoker Alcohol intake: current Drinks per week: 6 Substance use: never Living arrangements: with family Additional living arrangements comments: DAUGHTER AND HER HUSB Spiritual care concerns: No Exam Const: General: no acute distress Nutritional Appearance: thin Orientation/consciousness: patient oriented x3 Limitations: no limitations HENMT: Head: normal to inspection Eyes: Conjunctivae: conjunctivae normal Pupils: Equal, round and reactive pupils present Neck: Neck: normal visual inspection Chest: Chest palpation & inspection: normal inspection of the chest Resp: Effort & Inspection: normal respiratory effort Auscultation: clear to auscultation bilaterally Cardio: Rate: regular rate Rhythm: regular rhythm GI: GI Palp: Yes Soft to palpation Auscultation: normal bowel sounds : General: Yes bladder normal to palpation Back/Spine/Pelvis: Back: no CVA tenderness Skin: General skin exam: normal color Neuro: General: patient oriented x3, moves all extremities, no meningeal signs and no focal motor deficits Cranial nerves: Yes Nystagmus not present Speech: normal speech Extrem: General: normal to inspection and no clubbing, cyanosis or edema Course Course Emergency Course: Patient back to her baseline according to the patient and her daughter did a CT scan which showed no acute intracranial abnormalities urinalysis was normal. Advised patient and family to follow-up with her primary care physician for further evaluation. Vital Signs Vital signs: Vital Signs Temperature 36.6 C 11/17/24 12:20 Pulse Rate 86 11/17/24 12:20 Respiratory Rate 16 11/17/24 12:20 Blood Pressure 169/63 H 11/17/24 12:20 Pulse Oximetry 99 11/17/24 12:20 Oxygen Delivery Room Air 11/17/24 12:20 Temperature 36.6 C 11/17/24 12:20 Pulse Rate 86 11/17/24 12:27 Respiratory Rate 20 11/17/24 12:27 Blood Pressure 169/63 H 11/17/24 12:27 Pulse Oximetry 99 11/17/24 12:36 Oxygen Delivery Room Air 11/17/24 12:36 MDM - Altered Mental Status Lab Data Labs: Lab Results 11/17/24 Range/Units 13:03 Urine Color Light yellow (Yellow) Urine Appearance Clear (Clear) Urine pH 6.0 (5.0-8.0) Ur Specific Joiner <= 1.005 L (1.010-1.020) Urine Protein Negative (Negative) Urine Glucose (UA) Negative (Negative) Urine Ketones Negative (Negative) Ur Blood (Man) Negative (Negative) Urine Nitrate Negative (Negative) Urine Bilirubin Negative (Negative) Urine Urobilinogen 0.2 (0.2-1.0) mg/dL Leukocyte Esterase Rfl Negative (Negative) VIVIEN/UL Critical Care Time Critical Care Time Critical Care Time: No Discharge Plan Discharge Clinical Impression: Confusion Patient Disposition: Home Condition: Stable Instructions: Antibiotic Form, Altered Mental Status (ED) Additional Instructions: advise patient and family to follow with primary care physician within next 3 to 5 days for further evaluation and treatment. Patient Language: Thai Prescriptions: No Action pravastatin 40 mg tablet 40 mg PO HS aspirin 81 mg capsule 81 mg PO DAILY metoprolol succinate 25 mg tablet extended release 24 hr 25 mg PO DAILY Qty: 30 5RF amlodipine 5 mg tablet 5 mg PO DAILY Follow-up/Referrals: Mahendra Perez MD [Primary Care Provider, Internal Medicine] Time of Disposition: 13:43
== END 2024-11-17 13:50 | disposition home or self-care (01) ==
PROVIDERS: Emergency Provider Emergency Medicine; PCP Internal Medicine
DX: F44.89 Other dissociative and conversion disorders (principal); E78.5 Hyperlipidemia, unspecified; I10 Essential (primary) hypertension; I25.2 Old myocardial infarction; Z86.73 Personal history of transient ischemic attack (TIA), and cerebral infarction without residual deficits; Z85.43 Personal history of malignant neoplasm of ovary
CPT/HCPCS: 70450; 81003; 99284

== ENCOUNTER 2024-12-09 15:05 | Outpatient (CLI) | payer MEDICARE, BC, SELFPAY ==
[2024-12-09 15:21] LABS: Hematocrit 39.6 % (35.0-42.0); Hemoglobin 12.9 g/dL (11.7-13.8); Mean Corpuscular HGB Conc 32.6 g/dL (32-36); Mean Corpuscular Hemoglobin 30.6 pg (27.0-31.0); Mean Corpuscular Volume 93.8 fL (78.0-102.0); Platelet Count Result 266 K/mm3 (150-420); Red Blood Count 4.22 M/mm3 (4.20-5.40); White Blood Count 8.4 K/mm3 (4.8-10.8)
[2024-12-09 15:24] LABS: Add Urine Microscopic? YES; Appearance Urine Clear (Clear); Glucose Urine UA Negative (Negative); Leukocyte Esterase Ur 1+ (Negative); Nitrate Urine Negative (Negative); Specific Grav Ur 1.025 (1.010-1.020)
[2024-12-09 16:23] LABS: Alanine Aminotransferase 19 U/L (6-35); Albumin Level 4.9 g/dL (3.5-5.1); Alkaline Phosphatase 57 U/L (38-126); Anion Gap 11 mmol/L (4-12); Aspartate Amino Transferase 32 U/L (14-36); Bilirubin,Total 0.4 mg/dL (0.2-1.3); Blood Urea Nitrogen 25 mg/dL (7-17); CRP < 0.5 mg/dL (<1.0); Calcium 10.7 mg/dL (8.4-10.2); Carbon Dioxide 28 mmol/L (22-30); Chloride 106 mmol/L (98-107); Estimated Glomerular Filt Rate 46; Glucose 81 mg/dL (65-110); Osmolality Calculated 303 mOsm/kg (285-295); Potassium 4.7 mmol/L (3.4-5.0); Sodium 145 mmol/L (137-145); Total Protein 8.0 g/dL (6.3-8.2)
[2024-12-09 16:29] LABS: NT Pro B Type Natriuretic Pept 726 pg/mL (19.9-100)
[2024-12-09 16:37] LABS: Free T4 Free Thyroxine 1.04 ng/dL (0.78-2.19)
[2024-12-09 16:38] LABS: Free T3 3.03 pg/mL (2.18-3.98)
[2024-12-09 16:51] LABS: Thyroid Stimulating Hormone 5.770 uIU/mL (0.465-4.680)
== END 2024-12-09 15:06 | disposition home or self-care (01) ==
PROVIDERS: PCP Internal Medicine; Visit Provider Internal Medicine
DX: I50.9 Heart failure, unspecified (principal); R53.83 Other fatigue; R30.0 Dysuria; E03.4 Atrophy of thyroid (acquired)
CPT/HCPCS: 36415; 80053; 81001; 83880; 84439; 84443; 84481; 85027; 85652; 86140; 87086